=== PATIENT | female | born 1990 | race Caucasian/White ===

== ENCOUNTER 2016-02-21 09:10 | Emergency (ER) | payer MEDICAID, OTHER, SELFPAY ==
[~2016-02-21 09:10] MED LIST: /MOM400 PO; ACET50TA PO; ANUS2.5C2 PR; AVELOX PO; COLACE PO; DOCU10ELUD PO; IBUP80TA PO; MOTRIN PO; PERC5TAB PO; PRENTAB74 PO; VIBRAMYCIN PO
--- NOTE | 2016-02-21 11:30 | EDDOCDS ---
Nurse's Notes [facility] Name: Richelle Sandoval Age: 25 yrs Sex: Female : 1990 Arrival Date: 02/21/2016 Time: 09:10 Bed I4 / M4 Private MD: No Pcp Diagnosis: Acute vaginitis-bacterial vaginosis Presentation: 02/20 09:25 Presenting complaint: Patient states: she has a bacterial vaginal infection but now she kcs has a lot of pain going up into her stomach - started 1 month ago. Adult Sepsis Screening: The patient does not have new or worsening altered mentation. Patient's respiratory rate is less than 22. Systolic blood pressure is greater than 100. Patient has a qSOFA score of 0- Negative Sepsis Screen. Suicide/Homicide risk assessment- the patient denies having any suicidal and/or homicidal ideations and does not present with any other emotional, behavioral or mental health complaints. Status: Patient is not a swimming pool service technician or dependent. Transition of care: patient was not received from another setting of care. 09:25 Acuity: VERO Level 3 kcs 09:25 Method Of Arrival: Walkin/Carried/Asstd kcs Triage Assessment: 09:27 General: Appears comfortable, well developed, well nourished, Behavior is cooperative, kcs pleasant. Pain: Location: abdomen Pain currently is 5 out of 10 on a pain scale. HIV screening NA for this visit Offered previously. Neurological: Level of Consciousness is awake, alert. Respiratory: Airway is patent Respiratory effort is even, unlabored, Respiratory pattern is regular, symmetrical. : Reports discharge. Derm: Skin is intact, is healthy with good turgor, Skin is dry, Skin is normal. 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 Depo-Provera 150 mg/mL IM susp every 3 mo - PMHx: Kidney stones; - PSHx: had mirena removed; - Social history: Smoking status: Patient uses tobacco products, heavy tobacco smoker. No barriers to communication noted, The patient speaks fluent Tamaz[place]. - : The pt / caregiver states he / she is not on anticoagulants. Home medication list is obtained from the patient, [employer] import data. - Exposure Risk Screening:: None identified. Screenin:57 Screening information is obtained from the patient. Primary language is Tamazight. Fall jam1 risk: No risks identified. Assistance ADL's: requires no assistance with activities of daily living. Abuse/DV Screen: The patient / caregiver reports he/she is: not in a situation that causes fear, pain or injury. Nutritional screening: No deficits noted. Exposure Risk Screening: None identified. Advance Directives: Currently, there is no health care proxy. There is no active DNR order. There is no living will. There is no Power of Hand Stamper. Advance directive information has not previously been placed in an [facility] medical record. Further advance directive information is declined. home support is adequate. Vital Signs: 09:12 BP 130 / 70; Pulse 110; Resp 16; Temp 97.2(O); Pulse Ox 99% ; Weight 58.97 kg; Height 5 cmb ft. 6 in. (167.64 cm); Pain 5/10; 11:22 BP 117 / 60; Pulse 85; Resp 18; Temp 98.6; Pulse Ox 98% ; Pain 5/10; jam1 09:12 Body Mass Index 20.98 (58.97 kg, 167.64 cm) cmb Vitals: 09:12 Log In Time: February 21, 2016 at 09:10. cmb ED Course: 09:11 Patient visited by Mimi Glynn. cmb 09:11 Patient moved to Waiting cmb 09:12 No Pcp is Private Physician. cmb 09:13 Patient moved to Pre RCE cmb 09:26 Triage Initiated kcs 09:28 Patient moved to Triage 2 kcs 09:29 Reese Keller PA-C is PHCP. ar2 09:29 Ethel Issa MD is Attending Physician. ar2 09:29 Patient visited by Reese Keller PA-C. ar2 09:49 Patient moved to I3 / M3 bcj 09:50 Patient moved to I4 / M4 srm 10:00 Patient visited by Cherise Terrell RN. mk4 10:03 Pt greeted and oriented to ED. Patient advised of names of staff involved in care, jam1 location of call bradley, wait times and NPO status. Patient has correct armband on for positive identification. Placed in gown. Bed in low position. Call light in reach. Side rails up X 1. Door closed. 10:20 Urine Culture Sent. srm 10:20 UA Sent. srm 10:20 GC & Chlamydia Amplification Sent. srm 10:20 Wet Prep Sent. srm 10:46 Patient visited by Cherise Terrell RN. mk4 11:04 Tommy Chapin CNM is Referral Physician. ar2 11:29 [facility] Payment Agreement was scanned into [employer] and attached to record. Point of Care Testing: Urine : 10:20 hCG Reading: Negative; Control Reading: Positive; srm Ranges: Order Results: Lab Order: UA; SPEC'M 02/21/16 10:11 Test: APPEARANCE, URINE; Value: HAZY; Range: CLEAR; Status: F Test: COLOR, URINE; Value: YELLOW; Range: YELLOW; Status: F Test: PH,URINE; Value: 6.0; Range: 5.0-9.0; Units: UNITS; Status: F Test: SPECIFIC GRAVITY URINE AUTO; Value: 1.024; Range: 1.002-1.035; Status: F Test: PROTEIN, URINE AUTO; Value: NEGATIVE; Range: NEGATIVE; Units: mg/dL; Status: F Test: GLUCOSE, URINE (UA) AUTO; Value: NEGATIVE; Range: NEGATIVE; Units: mg/dL; Status: F Test: KETONE, URINE AUTO; Value: NEGATIVE; Range: NEGATIVE; Units: mg/dL; Status: F Test: UROBILINOGEN, URINE AUTO; Value: 0.2; Range: 0.0-2.0; Units: mg/dL; Status: F Test: BILIRUBIN, URINE AUTO; Value: NEGATIVE; Range: NEGATIVE; Status: F Test: NITRITE, URINE AUTO; Value: NEGATIVE; Range: NEGATIVE; Status: F Test: LEUKOCYTE ESTERASE, URINE AUTO; Value: NEGATIVE; Range: NEGATIVE; Status: F Test: BLOOD, URINE BLOOD; Value: NEGATIVE; Range: NEGATIVE; Status: F Test: WBC, URINE AUTO; Value: 1; Range: 0-3; Units: /HPF; Status: F Test: RBC, URINE AUTO; Value: 1; Range: 0-3; Units: /HPF; Status: F Test: BACTERIA, URINE AUTO; Value: 1+; Range: NEGATIVE; Abnormal: Above high normal; Status: F Test: SQUAMOUS EPITHELIAL CELL UR AU; Value: 5; Range: 0-6; Units: /HPF; Status: F Test: MUCUS, URINE; Value: SMALL; Range: NEGATIVE; Status: F Test: HYALINE CAST, URINE AUTO; Value: 0; Range: 0-1; Units: /LPF; Status: F Lab Order: Wet Prep; SPEC'M 02/21/16 10:11 Test: WET PREP; Value: WET PREP RESULT; Status: F Test: WET PREP; Value: MANY EPITHELIAL CELLS PRESENT; Status: F Test: WET PREP; Value: MANY WBC; Status: F Test: WET PREP; Value: MODERATE RBC; Status: F Test: WET PREP; Value: FEW CLUE CELLS PRESENT; Status: F Test: WET PREP; Value: MODERATE SHORT RODS PRESENT; Status: F Outcome: 11:05 Discharge ordered by Provider. ar2 11:29 Patient left the ED. jam1 Signatures: Awilda Rodriguez RN RN Elie Villagran RN RN Kaitlin Reeves, RN RN srm Tatum Flores, CUSTOMS COMPLIANCE MANAGER CUSTOMS COMPLIANCE MANAGER jam1 Alli Benson, Reg Reg lg Reese Keller PA-C PA-C ar2 Mimi Glynn Margaret RN RN mk4 MTDD
--- NOTE | 2016-02-21 11:30 | EDDOCDS ---
Physician Documentation [facility] Name: Richelle Sandoval Age: 25 yrs Sex: Female : 1990 Arrival Date: 02/21/2016 Time: 09:10 Bed I4 / M4 Private MD: No Pcp Disposition: 02/21/16 11:05 Discharged to Home/Self Care. Impression: Acute vaginitis - bacterial vaginosis. - Condition is Stable. - Discharge Instructions: Bacterial Vaginosis. - Prescriptions for Flagyl 500 mg Oral Tablet - take 1 tablet by ORAL route every 12 hours for 7 days; 14 tablet. Ibuprofen 600 mg Oral Tablet - take 1 tablet by ORAL route every 6 hours As needed take with food; 30 tablet. - Medication Reconciliation, Local Pharmacy Hours form. - Follow up: Tommy Chapin CNM; When: Call to arrange an appointment; Reason: Recheck today's complaints, Continuance of care. Follow up: Emergency Department; When: As needed; Reason: severe pain, fevers, nausea/vomiting. - Problem is new. - Symptoms are unchanged. - Notes: you will contacted with lab results, call tomorrow afternoon if you have not received a call. call your javascript ui developer for a follow up appointment Historical: - Allergies: Amoxicillin (Hives); PENICILLINS (Hives); - Home Meds: 1. Depo-Provera 150 mg/mL IM susp every 3 mo - PMHx: Kidney stones; - PSHx: had mirena removed; - Social history: Smoking status: Patient uses tobacco products, heavy tobacco smoker. No barriers to communication noted, The patient speaks fluent East Timorese. - : The pt / caregiver states he / she is not on anticoagulants. Home medication list is obtained from the patient, [employer] import data. - Exposure Risk Screening:: None identified. 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 6 in. (167.64 cm); Pain 5/10; 11:22 BP 117 / 60; Pulse 85; Resp 18; Temp 98.6; Pulse Ox 98% ; Pain 5/10; jam1 09:12 Body Mass Index 20.98 (58.97 kg, 167.64 cm) cmb MDM: 09:37 UCG by Nursing ordered. ar2 09:37 Set up pelvic ordered. ar2 09:37 Undress patient appropriately for examination ordered. ar2 09:38 UA Ordered. EDMS 09:38 GC & Chlamydia Amplification Ordered. EDMS 09:38 Urine Culture Ordered. EDMS 09:38 Wet Prep Ordered. EDMS 09:47 Financial registration complete. lg 10:48 UA Reviewed. ar2 10:48 Wet Prep Reviewed. ar2 11:29 [facility] Payment Agreement was scanned into [employer] and attached to record. Point of Care Testing: Urine : 10:20 hCG Reading: Negative; Control Reading: Positive; srm Ranges: Signatures: Dispatcher [employer] Awilda Retana, RN RN kcs Tatum Flores, FACILITIES CLERK FACILITIES CLERK jam1 Alli Benson, Reg Reg lg Reese Keller, OSCAR PARichard ar2 The chart was reviewed and I authenticate all verbal orders and agree with the evaluation and treatment provided.Attachments: 11:29 [facility] Payment Agreement lg MTDD
--- NOTE | 2016-02-23 12:30 | EDDOCDS ---
Nurse's Notes [facility] Name: Richelle Sandoval Age: 25 yrs Sex: Female : 1990 Arrival Date: 02/21/2016 Time: 09:10 Bed I4 / M4 Private MD: No Pcp Diagnosis: Acute vaginitis-bacterial vaginosis Presentation: 02/20 09:25 Presenting complaint: Patient states: she has a bacterial vaginal infection but now she kcs has a lot of pain going up into her stomach - started 1 month ago. Adult Sepsis Screening: The patient does not have new or worsening altered mentation. Patient's respiratory rate is less than 22. Systolic blood pressure is greater than 100. Patient has a qSOFA score of 0- Negative Sepsis Screen. Suicide/Homicide risk assessment- the patient denies having any suicidal and/or homicidal ideations and does not present with any other emotional, behavioral or mental health complaints. 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 Transition of care: patient was not received from another setting of care. 09:25 Acuity: VERO Level 3 kcs 09:25 Method Of Arrival: Walkin/Carried/Asstd kcs Triage Assessment: 09:27 General: Appears comfortable, well developed, well nourished, Behavior is cooperative, kcs pleasant. Pain: Location: abdomen Pain currently is 5 out of 10 on a pain scale. HIV screening NA for this visit Offered previously. Neurological: Level of Consciousness is awake, alert. Respiratory: Airway is patent Respiratory effort is even, unlabored, Respiratory pattern is regular, symmetrical. : Reports discharge. Derm: Skin is intact, is healthy with good turgor, Skin is dry, Skin is normal. 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 Depo-Provera 150 mg/mL IM susp every 3 mo - PMHx: Kidney stones; - PSHx: had mirena removed; - Social history: Smoking status: Patient uses tobacco products, heavy tobacco smoker. No barriers to communication noted, The patient speaks fluent Welsh. - Family history: Not pertinent. - : The pt / caregiver states he / she is not on anticoagulants. Home medication list is obtained from the patient, [facility] import data. - Exposure Risk Screening:: None identified. Screenin:57 Screening information is obtained from the patient. Primary language is Welsh. Fall jam1 risk: No risks identified. Assistance ADL's: requires no assistance with activities of daily living. Abuse/DV Screen: The patient / caregiver reports he/she is: not in a situation that causes fear, pain or injury. Nutritional screening: No deficits noted. Exposure Risk Screening: None identified. Advance Directives: Currently, there is no health care proxy. There is no active DNR order. There is no living will. There is no Power of Veterinary Assistant. Advance directive information has not previously been placed in an [facility] medical record. Further advance directive information is declined. home support is adequate. Assessment: 10:00 General: Appears in no apparent distress. Pain: Location: abdomen. GI: Reports mk4 bloating. : Reports a bacterial vag infection. 11:31 General: Appears in no apparent distress, comfortable, pt concerned that she is mk4 "bloated" but denies any further compalints of abd pain. Respiratory: Airway is patent Respiratory effort is even, unlabored, Respiratory pattern is regular. Vital Signs: 09:12 BP 130 / 70; Pulse 110; Resp 16; Temp 97.2(O); Pulse Ox 99% ; Weight 58.97 kg; Height 5 cmb ft. 6 in. (167.64 cm); Pain 5/10; 11:22 BP 117 / 60; Pulse 85; Resp 18; Temp 98.6; Pulse Ox 98% ; Pain 5/10; jam1 09:12 Body Mass Index 20.98 (58.97 kg, 167.64 cm) cmb Vitals: 09:12 Log In Time: February 21, 2016 at 09:10. cmb ED Course: 09:11 Patient visited by Mimi Glynn. cmb 09:11 Patient moved to Waiting cmb 09:12 No Pcp is Private Physician. cmb 09:13 Patient moved to Pre RCE cmb 09:26 Triage Initiated kcs 09:28 Patient moved to Triage 2 kcs 09:29 Reese Keller PA-C is PHCP. ar2 09:29 Ethel Issa MD is Attending Physician. ar2 09:29 Patient visited by Reese Keller PA-C. ar2 09:49 Patient moved to I3 / M3 bcj 09:50 Patient moved to I4 / M4 srm 10:00 Patient visited by Cherise Terrell RN. mk4 10:00 The patient / caregiver is instructed regarding the plan of care and ED course. mk4 10:00 No IV's were initiated during this patient's visit. mk4 10:03 Pt greeted and oriented to ED. Patient advised of names of staff involved in care, jam1 location of call bradley, wait times and NPO status. Patient has correct armband on for positive identification. Placed in gown. Bed in low position. Call light in reach. Side rails up X 1. Door closed. 10:20 Urine Culture Sent. srm 10:20 UA Sent. srm 10:20 GC & Chlamydia Amplification Sent. srm 10:20 Wet Prep Sent. srm 10:46 Patient visited by Cherise Terrell RN. mk4 11:04 Tommy Chapin CNM is Referral Physician. ar2 11:29 [facility] Payment Agreement was scanned into [employer] and attached to record. lg 11:31 Assist provider with pelvic exam: Set up pelvic tray. Specimens sent to lab. Performed mk4 by Reese Keller PA-C. 12:40 T-Sheet-- Draft Copy was scanned into [employer] and attached to record. gb Point of Care Testing: Urine : 10:20 hCG Reading: Negative; Control Reading: Positive; srm Ranges: Order Results: Lab Order: UA; SPEC'M 02/21/16 10:11 Test: APPEARANCE, URINE; Value: HAZY; Range: CLEAR; Status: F Test: COLOR, URINE; Value: YELLOW; Range: YELLOW; Status: F Test: PH,URINE; Value: 6.0; Range: 5.0-9.0; Units: UNITS; Status: F Test: SPECIFIC GRAVITY URINE AUTO; Value: 1.024; Range: 1.002-1.035; Status: F Test: PROTEIN, URINE AUTO; Value: NEGATIVE; Range: NEGATIVE; Units: mg/dL; Status: F Test: GLUCOSE, URINE (UA) AUTO; Value: NEGATIVE; Range: NEGATIVE; Units: mg/dL; Status: F Test: KETONE, URINE AUTO; Value: NEGATIVE; Range: NEGATIVE; Units: mg/dL; Status: F Test: UROBILINOGEN, URINE AUTO; Value: 0.2; Range: 0.0-2.0; Units: mg/dL; Status: F Test: BILIRUBIN, URINE AUTO; Value: NEGATIVE; Range: NEGATIVE; Status: F Test: NITRITE, URINE AUTO; Value: NEGATIVE; Range: NEGATIVE; Status: F Test: LEUKOCYTE ESTERASE, URINE AUTO; Value: NEGATIVE; Range: NEGATIVE; Status: F Test: BLOOD, URINE BLOOD; Value: NEGATIVE; Range: NEGATIVE; Status: F Test: WBC, URINE AUTO; Value: 1; Range: 0-3; Units: /HPF; Status: F Test: RBC, URINE AUTO; Value: 1; Range: 0-3; Units: /HPF; Status: F Test: BACTERIA, URINE AUTO; Value: 1+; Range: NEGATIVE; Abnormal: Above high normal; Status: F Test: SQUAMOUS EPITHELIAL CELL UR AU; Value: 5; Range: 0-6; Units: /HPF; Status: F Test: MUCUS, URINE; Value: SMALL; Range: NEGATIVE; Status: F Test: HYALINE CAST, URINE AUTO; Value: 0; Range: 0-1; Units: /LPF; Status: F Lab Order: Urine Culture; SPEC'M 02/21/16 10:11 Test: URINE CULTURE; Value: ORGANISM 1: ESCHERICHIA COLI; Status: F Test: URINE CULTURE; Value: ESCHERICHIA COLI; Status: F Test: URINE CULTURE; Value: COLONY COUNT CFU/ml >100,000; Status: F Test: URINE CULTURE; Value: GRAM NEG SENSI - VITEK 80; Status: F Test: URINE CULTURE; Value: Method: VIT2; Status: F Test: URINE CULTURE; Value: EXTD BRD SPCTRM BETA LACTAMASE -; Status: F Test: URINE CULTURE; Value: TRIMETHOPRIM/SULFAMETHOXAZOLE <=20 S; Status: F Test: URINE CULTURE; Value: AMPICILLIN 4 S; Status: F Test: URINE CULTURE; Value: GENTAMICIN <=1 S; Status: F Test: URINE CULTURE; Value: NITROFURANTOIN <=16 S; Status: F Test: URINE CULTURE; Value: CEFAZOLIN <=4 S; Status: F Test: URINE CULTURE; Value: LEVOFLOXACIN <=0.12 S; Status: F Test: URINE CULTURE; Value: TOBRAMYCIN <=1 S; Status: F Test: URINE CULTURE; Value: CEFTRIAXONE <=1 S; Status: F Test: URINE CULTURE; Value: CEFTAZIDIME <=1 S; Status: F Test: URINE CULTURE; Value: AMPICILLIN/SULBACTAM <=2 S; Status: F Test: URINE CULTURE; Value: PIPERACILLIN/TAZOBACTAM <=4 S; Status: F Test: URINE CULTURE; Value: AZTREONAM <=1 S; Status: F Test: URINE CULTURE; Value: ERTAPENEM <=0.5 S; Status: F Test: URINE CULTURE; Value: MEROPENEM <=0.25 S; Status: F Test: URINE CULTURE; Value: TIGECYCLINE <=0.5 S; Status: F Test: URINE CULTURE; Value: CEFEPIME <=1 S; Status: F Lab Order: Wet Prep; SPEC'M 02/21/16 10:11 Test: WET PREP; Value: WET PREP RESULT; Status: F Test: WET PREP; Value: MANY EPITHELIAL CELLS PRESENT; Status: F Test: WET PREP; Value: MANY WBC; Status: F Test: WET PREP; Value: MODERATE RBC; Status: F Test: WET PREP; Value: FEW CLUE CELLS PRESENT; Status: F Test: WET PREP; Value: MODERATE SHORT RODS PRESENT; Status: F Lab Order: GC & Chlamydia Amplification; SPEC'M 02/21/16 10:11 Test: CHLAMYDIA DNA AMPLIFICATION; Value: NEGATIVE; Range: NEGATIVE; Status: F Test: GC DNA AMPLIFICATION; Value: NEGATIVE; Range: NEGATIVE; Status: F Outcome: 11:05 Discharge ordered by Provider. ar2 11:29 Patient left the ED. jam1 11:31 Discharge Assessment: Patient awake, alert and oriented x 3. No cognitive and/or mk4 functional deficits noted. Patient verbalized understanding of disposition instructions. Patient awake and alert. Discharge Assessment: patient administered narcotics - no. The following High Risk Discharge criteria are identified: None. Condition: good Condition: stable. No special radiology studies were completed. Property sent home with patient. Signatures: Awilda Rodriguez RN RN kcs Johnson, Bruce, RN RN bcj Michelson, Staci, RN RN srm Murphy, Jane, IVY APPLICATIONS SCIENTIST jam1 Leticia Smith, Reg Reg gb Alli Benson, Reg Reg lg Reese Keller PA-C PA-C ar2 Mimi Glynn cmb Cherise Terrell, RN RN mk4 Chart Complete MTDD
--- NOTE | 2016-02-23 12:30 | EDDOCDS ---
Physician Documentation [facility] Name: Richelle Sandoval Age: 25 yrs Sex: Female : 1990 Arrival Date: 02/21/2016 Time: 09:10 Bed I4 / M4 Private MD: No Pcp Disposition: 02/21/16 11:05 Discharged to Home/Self Care. Impression: Acute vaginitis - bacterial vaginosis. - Condition is Stable. - Discharge Instructions: Bacterial Vaginosis. - Prescriptions for Flagyl 500 mg Oral Tablet - take 1 tablet by ORAL route every 12 hours for 7 days; 14 tablet. Ibuprofen 600 mg Oral Tablet - take 1 tablet by ORAL route every 6 hours As needed take with food; 30 tablet. - Medication Reconciliation, Local Pharmacy Hours form. - Follow up: Tommy Chapin CNM; When: Call to arrange an appointment; Reason: Recheck today's complaints, Continuance of care. Follow up: Emergency Department; When: As needed; Reason: severe pain, fevers, nausea/vomiting. - Problem is new. - Symptoms are unchanged. - Notes: you will contacted with lab results, call tomorrow afternoon if you have not received a call. call your hospital account liaison for a follow up appointment Historical: - Allergies: Amoxicillin (Hives); PENICILLINS (Hives); - Home Meds: 1. Depo-Provera 150 mg/mL IM susp every 3 mo - PMHx: Kidney stones; - PSHx: had mirena removed; - Social history: Smoking status: Patient uses tobacco products, heavy tobacco smoker. No barriers to communication noted, The patient speaks fluent Honduran. - Family history: Not pertinent. - : The pt / caregiver states he / she is not on anticoagulants. Home medication list is obtained from the patient, [employer] import data. - Exposure Risk Screening:: None identified. 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 6 in. (167.64 cm); Pain 5/10; 11:22 BP 117 / 60; Pulse 85; Resp 18; Temp 98.6; Pulse Ox 98% ; Pain 5/10; jam1 09:12 Body Mass Index 20.98 (58.97 kg, 167.64 cm) cmb MDM: 09:37 UCG by Nursing ordered. ar2 09:37 Set up pelvic ordered. ar2 09:37 Undress patient appropriately for examination ordered. ar2 09:38 UA Ordered. EDMS 09:38 GC & Chlamydia Amplification Ordered. EDMS 09:38 Urine Culture Ordered. EDMS 09:38 Wet Prep Ordered. EDMS 09:47 Financial registration complete. lg 10:48 UA Reviewed. ar2 10:48 Wet Prep Reviewed. ar2 11:29 [facility] Payment Agreement was scanned into [employer] and attached to record. lg 12:40 T-Sheet-- Draft Copy was scanned into [employer] and attached to record. gb Point of Care Testing: Urine : 10:20 hCG Reading: Negative; Control Reading: Positive; srm Ranges: Signatures: Dispatcher [employer] Awilda Retana, RN RN kcs Tatum Flores, ENGINEER SYSTEMS ENGINEER SYSTEMS jam1 Leticia Smith, Reg Reg gb Alli Benson, Reg Reg lg Reese Keller, PA-C PA-C ar2 Cherise Terrell RN RN mk4 The chart was reviewed and I authenticate all verbal orders and agree with the evaluation and treatment provided.Attachments: 11:29 [facility] Payment Agreement lg 12:40 T-Sheet-- Draft Copy gb Chart Complete MTDD
--- NOTE | 2016-02-23 12:30 | EDDOCDS ---
Physician Documentation [facility] Name: Richelle Sandoval Age: 25 yrs Sex: Female : 1990 Arrival Date: 02/21/2016 Time: 09:10 Bed I4 / M4 Private MD: No Pcp Disposition: 02/21/16 11:05 Discharged to Home/Self Care. Impression: Acute vaginitis - bacterial vaginosis. - Condition is Stable. - Discharge Instructions: Bacterial Vaginosis. - Prescriptions for Flagyl 500 mg Oral Tablet - take 1 tablet by ORAL route every 12 hours for 7 days; 14 tablet. Ibuprofen 600 mg Oral Tablet - take 1 tablet by ORAL route every 6 hours As needed take with food; 30 tablet. - Medication Reconciliation, Local Pharmacy Hours form. - Follow up: Tommy Chapin CNM; When: Call to arrange an appointment; Reason: Recheck today's complaints, Continuance of care. Follow up: Emergency Department; When: As needed; Reason: severe pain, fevers, nausea/vomiting. - Problem is new. - Symptoms are unchanged. - Notes: you will contacted with lab results, call tomorrow afternoon if you have not received a call. call your maintenance service dispatcher for a follow up appointment Historical: - Allergies: Amoxicillin (Hives); PENICILLINS (Hives); - Home Meds: 1. Depo-Provera 150 mg/mL IM susp every 3 mo - PMHx: Kidney stones; - PSHx: had mirena removed; - Social history: Smoking status: Patient uses tobacco products, heavy tobacco smoker. No barriers to communication noted, The patient speaks fluent Comoran. - Family history: Not pertinent. - : The pt / caregiver states he / she is not on anticoagulants. Home medication list is obtained from the patient, [employer] import data. - Exposure Risk Screening:: None identified. 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 6 in. (167.64 cm); Pain 5/10; 11:22 BP 117 / 60; Pulse 85; Resp 18; Temp 98.6; Pulse Ox 98% ; Pain 5/10; jam1 09:12 Body Mass Index 20.98 (58.97 kg, 167.64 cm) cmb MDM: 09:37 UCG by Nursing ordered. ar2 09:37 Set up pelvic ordered. ar2 09:37 Undress patient appropriately for examination ordered. ar2 09:38 UA Ordered. EDMS 09:38 GC & Chlamydia Amplification Ordered. EDMS 09:38 Urine Culture Ordered. EDMS 09:38 Wet Prep Ordered. EDMS 09:47 Financial registration complete. lg 10:48 UA Reviewed. ar2 10:48 Wet Prep Reviewed. ar2 11:29 [place] Payment Agreement was scanned into [employer] and attached to record. lg 12:40 T-Sheet-- Draft Copy was scanned into [employer] and attached to record. gb Point of Care Testing: Urine : 10:20 hCG Reading: Negative; Control Reading: Positive; srm Ranges: Signatures: Dispatcher [employer] Awilda Retana, RN RN kcs Tatum Flores, PET STORE MERCHANDISER PET STORE MERCHANDISER jam1 Leticia Smith, Reg Reg gb Alli Benson, Reg Reg lg Reese Keller, PA-C PA-C ar2 Cherise Terrell RN RN mk4 The chart was reviewed and I authenticate all verbal orders and agree with the evaluation and treatment provided.Attachments: 11:29 [place] Payment Agreement lg 12:40 T-Sheet-- Draft Copy gb Chart Complete MTDD
--- NOTE | 2016-02-23 14:16 | EDDOCDS ---
Nurse's Notes [facility] Name: Richelle Sandoval Age: 25 yrs Sex: Female : 1990 Arrival Date: 02/21/2016 Time: 09:10 Bed I4 / M4 Private MD: No Pcp Diagnosis: Acute vaginitis-bacterial vaginosis Presentation: 02/20 09:25 Presenting complaint: Patient states: she has a bacterial vaginal infection but now she kcs has a lot of pain going up into her stomach - started 1 month ago. Adult Sepsis Screening: The patient does not have new or worsening altered mentation. Patient's respiratory rate is less than 22. Systolic blood pressure is greater than 100. Patient has a qSOFA score of 0- Negative Sepsis Screen. Suicide/Homicide risk assessment- the patient denies having any suicidal and/or homicidal ideations and does not present with any other emotional, behavioral or mental health complaints. Status: Patient is not a medical services coordinator or dependent. Transition of care: patient was not received from another setting of care. 09:25 Acuity: VERO Level 3 kcs 09:25 Method Of Arrival: Walkin/Carried/Asstd kcs Triage Assessment: 09:27 General: Appears comfortable, well developed, well nourished, Behavior is cooperative, kcs pleasant. Pain: Location: abdomen Pain currently is 5 out of 10 on a pain scale. HIV screening NA for this visit Offered previously. Neurological: Level of Consciousness is awake, alert. Respiratory: Airway is patent Respiratory effort is even, unlabored, Respiratory pattern is regular, symmetrical. : Reports discharge. Derm: Skin is intact, is healthy with good turgor, Skin is dry, Skin is normal. 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 Depo-Provera 150 mg/mL IM susp every 3 mo - PMHx: Kidney stones; - PSHx: had mirena removed; - Social history: Smoking status: Patient uses tobacco products, heavy tobacco smoker. No barriers to communication noted, The patient speaks fluent Frisian. - Family history: Not pertinent. - : The pt / caregiver states he / she is not on anticoagulants. Home medication list is obtained from the patient, [employer] import data. - Exposure Risk Screening:: None identified. Screenin:57 Screening information is obtained from the patient. Primary language is Frisian. Fall jam1 risk: No risks identified. Assistance ADL's: requires no assistance with activities of daily living. Abuse/DV Screen: The patient / caregiver reports he/she is: not in a situation that causes fear, pain or injury. Nutritional screening: No deficits noted. Exposure Risk Screening: None identified. Advance Directives: Currently, there is no health care proxy. There is no active DNR order. There is no living will. There is no Power of Reception Agent. Advance directive information has not previously been placed in an [facility] medical record. Further advance directive information is declined. home support is adequate. Assessment: 10:00 General: Appears in no apparent distress. Pain: Location: abdomen. GI: Reports mk4 bloating. : Reports a bacterial vag infection. 11:31 General: Appears in no apparent distress, comfortable, pt concerned that she is mk4 "bloated" but denies any further compalints of abd pain. Respiratory: Airway is patent Respiratory effort is even, unlabored, Respiratory pattern is regular. Vital Signs: 09:12 BP 130 / 70; Pulse 110; Resp 16; Temp 97.2(O); Pulse Ox 99% ; Weight 58.97 kg; Height 5 cmb ft. 6 in. (167.64 cm); Pain 5/10; 11:22 BP 117 / 60; Pulse 85; Resp 18; Temp 98.6; Pulse Ox 98% ; Pain 5/10; jam1 09:12 Body Mass Index 20.98 (58.97 kg, 167.64 cm) cmb Vitals: 09:12 Log In Time: February 21, 2016 at 09:10. cmb ED Course: 09:11 Patient visited by Mimi Glynn. cmb 09:11 Patient moved to Waiting cmb 09:12 No Pcp is Private Physician. cmb 09:13 Patient moved to Pre RCE cmb 09:26 Triage Initiated kcs 09:28 Patient moved to Triage 2 kcs 09:29 Reese Keller PA-C is PHCP. ar2 09:29 Ethel Issa MD is Attending Physician. ar2 09:29 Patient visited by Reese Keller PA-C. ar2 09:49 Patient moved to I3 / M3 bcj 09:50 Patient moved to I4 / M4 srm 10:00 Patient visited by Cherise Terrell RN. mk4 10:00 The patient / caregiver is instructed regarding the plan of care and ED course. mk4 10:00 No IV's were initiated during this patient's visit. mk4 10:03 Pt greeted and oriented to ED. Patient advised of names of staff involved in care, jam1 location of call bradley, wait times and NPO status. Patient has correct armband on for positive identification. Placed in gown. Bed in low position. Call light in reach. Side rails up X 1. Door closed. 10:20 Urine Culture Sent. srm 10:20 UA Sent. srm 10:20 GC & Chlamydia Amplification Sent. srm 10:20 Wet Prep Sent. srm 10:46 Patient visited by Cherise Terrell RN. mk4 11:04 Tommy Chapin CNM is Referral Physician. ar2 11:29 [place] [place] Payment Agreement was scanned into [employer] and attached to record. lg 11:31 Assist provider with pelvic exam: Set up pelvic tray. Specimens sent to lab. Performed mk4 by Reese Keller PA-C. 12:40 T-Sheet-- Draft Copy was scanned into [employer] and attached to record. gb Point of Care Testing: Urine : 10:20 hCG Reading: Negative; Control Reading: Positive; srm Ranges: Order Results: Lab Order: UA; SPEC'M 02/21/16 10:11 Test: APPEARANCE, URINE; Value: HAZY; Range: CLEAR; Status: F Test: COLOR, URINE; Value: YELLOW; Range: YELLOW; Status: F Test: PH,URINE; Value: 6.0; Range: 5.0-9.0; Units: UNITS; Status: F Test: SPECIFIC GRAVITY URINE AUTO; Value: 1.024; Range: 1.002-1.035; Status: F Test: PROTEIN, URINE AUTO; Value: NEGATIVE; Range: NEGATIVE; Units: mg/dL; Status: F Test: GLUCOSE, URINE (UA) AUTO; Value: NEGATIVE; Range: NEGATIVE; Units: mg/dL; Status: F Test: KETONE, URINE AUTO; Value: NEGATIVE; Range: NEGATIVE; Units: mg/dL; Status: F Test: UROBILINOGEN, URINE AUTO; Value: 0.2; Range: 0.0-2.0; Units: mg/dL; Status: F Test: BILIRUBIN, URINE AUTO; Value: NEGATIVE; Range: NEGATIVE; Status: F Test: NITRITE, URINE AUTO; Value: NEGATIVE; Range: NEGATIVE; Status: F Test: LEUKOCYTE ESTERASE, URINE AUTO; Value: NEGATIVE; Range: NEGATIVE; Status: F Test: BLOOD, URINE BLOOD; Value: NEGATIVE; Range: NEGATIVE; Status: F Test: WBC, URINE AUTO; Value: 1; Range: 0-3; Units: /HPF; Status: F Test: RBC, URINE AUTO; Value: 1; Range: 0-3; Units: /HPF; Status: F Test: BACTERIA, URINE AUTO; Value: 1+; Range: NEGATIVE; Abnormal: Above high normal; Status: F Test: SQUAMOUS EPITHELIAL CELL UR AU; Value: 5; Range: 0-6; Units: /HPF; Status: F Test: MUCUS, URINE; Value: SMALL; Range: NEGATIVE; Status: F Test: HYALINE CAST, URINE AUTO; Value: 0; Range: 0-1; Units: /LPF; Status: F Lab Order: Urine Culture; SPEC'M 02/21/16 10:11 Test: URINE CULTURE; Value: ORGANISM 1: ESCHERICHIA COLI; Status: F Test: URINE CULTURE; Value: ESCHERICHIA COLI; Status: F Test: URINE CULTURE; Value: COLONY COUNT CFU/ml >100,000; Status: F Test: URINE CULTURE; Value: GRAM NEG SENSI - VITEK 80; Status: F Test: URINE CULTURE; Value: Method: VIT2; Status: F Test: URINE CULTURE; Value: EXTD BRD SPCTRM BETA LACTAMASE -; Status: F Test: URINE CULTURE; Value: TRIMETHOPRIM/SULFAMETHOXAZOLE <=20 S; Status: F Test: URINE CULTURE; Value: AMPICILLIN 4 S; Status: F Test: URINE CULTURE; Value: GENTAMICIN <=1 S; Status: F Test: URINE CULTURE; Value: NITROFURANTOIN <=16 S; Status: F Test: URINE CULTURE; Value: CEFAZOLIN <=4 S; Status: F Test: URINE CULTURE; Value: LEVOFLOXACIN <=0.12 S; Status: F Test: URINE CULTURE; Value: TOBRAMYCIN <=1 S; Status: F Test: URINE CULTURE; Value: CEFTRIAXONE <=1 S; Status: F Test: URINE CULTURE; Value: CEFTAZIDIME <=1 S; Status: F Test: URINE CULTURE; Value: AMPICILLIN/SULBACTAM <=2 S; Status: F Test: URINE CULTURE; Value: PIPERACILLIN/TAZOBACTAM <=4 S; Status: F Test: URINE CULTURE; Value: AZTREONAM <=1 S; Status: F Test: URINE CULTURE; Value: ERTAPENEM <=0.5 S; Status: F Test: URINE CULTURE; Value: MEROPENEM <=0.25 S; Status: F Test: URINE CULTURE; Value: TIGECYCLINE <=0.5 S; Status: F Test: URINE CULTURE; Value: CEFEPIME <=1 S; Status: F Lab Order: Wet Prep; SPEC'M 02/21/16 10:11 Test: WET PREP; Value: WET PREP RESULT; Status: F Test: WET PREP; Value: MANY EPITHELIAL CELLS PRESENT; Status: F Test: WET PREP; Value: MANY WBC; Status: F Test: WET PREP; Value: MODERATE RBC; Status: F Test: WET PREP; Value: FEW CLUE CELLS PRESENT; Status: F Test: WET PREP; Value: MODERATE SHORT RODS PRESENT; Status: F Lab Order: GC & Chlamydia Amplification; SPEC'M 02/21/16 10:11 Test: CHLAMYDIA DNA AMPLIFICATION; Value: NEGATIVE; Range: NEGATIVE; Status: F Test: GC DNA AMPLIFICATION; Value: NEGATIVE; Range: NEGATIVE; Status: F Outcome: 11:05 Discharge ordered by Provider. ar2 11:29 Patient left the ED. jam1 11:31 Discharge Assessment: Patient awake, alert and oriented x 3. No cognitive and/or mk4 functional deficits noted. Patient verbalized understanding of disposition instructions. Patient awake and alert. Discharge Assessment: patient administered narcotics - no. The following High Risk Discharge criteria are identified: None. Condition: good Condition: stable. No special radiology studies were completed. Property sent home with patient. Addendum: 02/23/2016 14:13 Narrative: Urine culture results reviewed by MONICA Moreno. Pt contacted and mcp prescription for Macrobid 100mg po BID x 10 days called into [facility]. Signatures: Awilda Rodriguez RN RN Elie Villagran RN RN bcj Michelson, Staci, RN RN Yesenia Sims, RN RN Tatum Godoy, SINGLE POINTED OPERATOR SINGLE POINTED OPERATOR jam1 Leticia Smith, Reg Reg gb Alli Benson, Reg Reg lg Reese Keller, Mimi Chanel PA-C, Margaret, RN RN mk4 MTDD
--- NOTE | 2016-02-23 14:16 | EDDOCDS ---
Physician Documentation [facility] Name: Richelle Sandoval Age: 25 yrs Sex: Female : 1990 Arrival Date: 02/21/2016 Time: 09:10 Bed I4 / M4 Private MD: No Pcp Disposition: 02/21/16 11:05 Discharged to Home/Self Care. Impression: Acute vaginitis - bacterial vaginosis. - Condition is Stable. - Discharge Instructions: Bacterial Vaginosis. - Prescriptions for Flagyl 500 mg Oral Tablet - take 1 tablet by ORAL route every 12 hours for 7 days; 14 tablet. Ibuprofen 600 mg Oral Tablet - take 1 tablet by ORAL route every 6 hours As needed take with food; 30 tablet. - Medication Reconciliation, Local Pharmacy Hours form. - Follow up: Tommy Chapin CNM; When: Call to arrange an appointment; Reason: Recheck today's complaints, Continuance of care. Follow up: Emergency Department; When: As needed; Reason: severe pain, fevers, nausea/vomiting. - Problem is new. - Symptoms are unchanged. - Notes: you will contacted with lab results, call tomorrow afternoon if you have not received a call. call your change management consultant for a follow up appointment Historical: - Allergies: Amoxicillin (Hives); PENICILLINS (Hives); - Home Meds: 1. Depo-Provera 150 mg/mL IM susp every 3 mo - PMHx: Kidney stones; - PSHx: had mirena removed; - Social history: Smoking status: Patient uses tobacco products, heavy tobacco smoker. No barriers to communication noted, The patient speaks fluent Paraguayan. - Family history: Not pertinent. - : The pt / caregiver states he / she is not on anticoagulants. Home medication list is obtained from the patient, [employer] import data. - Exposure Risk Screening:: None identified. 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 6 in. (167.64 cm); Pain 5/10; 11:22 BP 117 / 60; Pulse 85; Resp 18; Temp 98.6; Pulse Ox 98% ; Pain 5/10; jam1 09:12 Body Mass Index 20.98 (58.97 kg, 167.64 cm) cmb MDM: 09:37 UCG by Nursing ordered. ar2 09:37 Set up pelvic ordered. ar2 09:37 Undress patient appropriately for examination ordered. ar2 09:38 UA Ordered. EDMS 09:38 GC & Chlamydia Amplification Ordered. EDMS 09:38 Urine Culture Ordered. EDMS 09:38 Wet Prep Ordered. EDMS 09:47 Financial registration complete. lg 10:48 UA Reviewed. ar2 10:48 Wet Prep Reviewed. ar2 11:29 [facility] Payment Agreement was scanned into [employer] and attached to record. lg 12:40 T-Sheet-- Draft Copy was scanned into [employer] and attached to record. gb Point of Care Testing: Urine : 10:20 hCG Reading: Negative; Control Reading: Positive; srm Ranges: Signatures: Dispatcher [employer] Awilda Retana, RN RN kcs Tatum Flores, WASH OIL PUMP OPERATOR HELPER WASH OIL PUMP OPERATOR HELPER jam1 Leticia Smith, Reg Reg gb Alli Benson, Reg Reg lg Reese Keller, PA-C PA-C ar2 Cherise Terrell RN RN mk4 The chart was reviewed and I authenticate all verbal orders and agree with the evaluation and treatment provided.Attachments: 11:29 [facility] Payment Agreement lg 12:40 T-Sheet-- Draft Copy gb MTDD
--- NOTE | 2016-02-23 14:16 | EDDOCDS ---
Physician Documentation [facility] Name: Richelle Sandoval Age: 25 yrs Sex: Female : 1990 Arrival Date: 02/21/2016 Time: 09:10 Bed I4 / M4 Private MD: No Pcp Disposition: 02/21/16 11:05 Discharged to Home/Self Care. Impression: Acute vaginitis - bacterial vaginosis. - Condition is Stable. - Discharge Instructions: Bacterial Vaginosis. - Prescriptions for Flagyl 500 mg Oral Tablet - take 1 tablet by ORAL route every 12 hours for 7 days; 14 tablet. Ibuprofen 600 mg Oral Tablet - take 1 tablet by ORAL route every 6 hours As needed take with food; 30 tablet. - Medication Reconciliation, Local Pharmacy Hours form. - Follow up: Tommy Chapin CNM; When: Call to arrange an appointment; Reason: Recheck today's complaints, Continuance of care. Follow up: Emergency Department; When: As needed; Reason: severe pain, fevers, nausea/vomiting. - Problem is new. - Symptoms are unchanged. - Notes: you will contacted with lab results, call tomorrow afternoon if you have not received a call. call your program director substance abuse for a follow up appointment Historical: - Allergies: Amoxicillin (Hives); PENICILLINS (Hives); - Home Meds: 1. Depo-Provera 150 mg/mL IM susp every 3 mo - PMHx: Kidney stones; - PSHx: had mirena removed; - Social history: Smoking status: Patient uses tobacco products, heavy tobacco smoker. No barriers to communication noted, The patient speaks fluent Montenegrin. - Family history: Not pertinent. - : The pt / caregiver states he / she is not on anticoagulants. Home medication list is obtained from the patient, [employer] import data. - Exposure Risk Screening:: None identified. TAXATION CONSULTANT: 02/20 09:27 LMP N/A - control method kcs Vital Signs: 09:12 BP 130 / 70; Pulse 110; Resp 16; Temp 97.2(O); Pulse Ox 99% ; Weight 58.97 kg / 130.01 cmb lbs; Height 5 ft. 6 in. (167.64 cm); Pain 5/10; 11:22 BP 117 / 60; Pulse 85; Resp 18; Temp 98.6; Pulse Ox 98% ; Pain 5/10; jam1 09:12 Body Mass Index 20.98 (58.97 kg, 167.64 cm) cmb MDM: 09:37 UCG by Nursing ordered. ar2 09:37 Set up pelvic ordered. ar2 09:37 Undress patient appropriately for examination ordered. ar2 09:38 UA Ordered. EDMS 09:38 GC & Chlamydia Amplification Ordered. EDMS 09:38 Urine Culture Ordered. EDMS 09:38 Wet Prep Ordered. EDMS 09:47 Financial registration complete. lg 10:48 UA Reviewed. ar2 10:48 Wet Prep Reviewed. ar2 11:29 [facility] Payment Agreement was scanned into [employer] and attached to record. lg 12:40 T-Sheet-- Draft Copy was scanned into [employer] and attached to record. gb Point of Care Testing: Urine : 10:20 hCG Reading: Negative; Control Reading: Positive; srm Ranges: Signatures: Dispatcher [employer] Awilda Retana, RN RN kcs Tatum Flores, SQUEEGEE FINISHER SQUEEGEE FINISHER jam1 Leticia Smith, Reg Reg gb Alli Benson, Reg Reg lg Reese Keller, PA-C PA-C ar2 Cherise Terrell RN RN mk4 The chart was reviewed and I authenticate all verbal orders and agree with the evaluation and treatment provided.Attachments: 11:29 [facility] Payment Agreement lg 12:40 T-Sheet-- Draft Copy gb MTDD
--- NOTE | 2016-02-23 14:17 | EDDOCDS ---
Physician Documentation [facility] Name: Richelle Sandoval Age: 25 yrs Sex: Female : 1990 Arrival Date: 02/21/2016 Time: 09:10 Bed I4 / M4 Private MD: No Pcp Disposition: 02/21/16 11:05 Discharged to Home/Self Care. Impression: Acute vaginitis - bacterial vaginosis. - Condition is Stable. - Discharge Instructions: Bacterial Vaginosis. - Prescriptions for Flagyl 500 mg Oral Tablet - take 1 tablet by ORAL route every 12 hours for 7 days; 14 tablet. Ibuprofen 600 mg Oral Tablet - take 1 tablet by ORAL route every 6 hours As needed take with food; 30 tablet. - Medication Reconciliation, Local Pharmacy Hours form. - Follow up: Tommy Chapin CNM; When: Call to arrange an appointment; Reason: Recheck today's complaints, Continuance of care. Follow up: Emergency Department; When: As needed; Reason: severe pain, fevers, nausea/vomiting. - Problem is new. - Symptoms are unchanged. - Notes: you will contacted with lab results, call tomorrow afternoon if you have not received a call. call your small engine trainer for a follow up appointment Historical: - Allergies: Amoxicillin (Hives); PENICILLINS (Hives); - Home Meds: 1. Depo-Provera 150 mg/mL IM susp every 3 mo - PMHx: Kidney stones; - PSHx: had mirena removed; - Social history: Smoking status: Patient uses tobacco products, heavy tobacco smoker. No barriers to communication noted, The patient speaks fluent Salvadorean. - Family history: Not pertinent. - : The pt / caregiver states he / she is not on anticoagulants. Home medication list is obtained from the patient, [employer] import data. - Exposure Risk Screening:: None identified. ADDICTION COUNSELOR: 02/20 09:27 LMP N/A - control method kcs Vital Signs: 09:12 BP 130 / 70; Pulse 110; Resp 16; Temp 97.2(O); Pulse Ox 99% ; Weight 58.97 kg / 130.01 cmb lbs; Height 5 ft. 6 in. (167.64 cm); Pain 5/10; 11:22 BP 117 / 60; Pulse 85; Resp 18; Temp 98.6; Pulse Ox 98% ; Pain 5/10; jam1 09:12 Body Mass Index 20.98 (58.97 kg, 167.64 cm) cmb MDM: 09:37 UCG by Nursing ordered. ar2 09:37 Set up pelvic ordered. ar2 09:37 Undress patient appropriately for examination ordered. ar2 09:38 UA Ordered. EDMS 09:38 GC & Chlamydia Amplification Ordered. EDMS 09:38 Urine Culture Ordered. EDMS 09:38 Wet Prep Ordered. EDMS 09:47 Financial registration complete. lg 10:48 UA Reviewed. ar2 10:48 Wet Prep Reviewed. ar2 11:29 [facility] [place] Agreement was scanned into [employer] and attached to record. lg 12:40 T-Sheet-- Draft Copy was scanned into [employer] and attached to record. gb Point of Care Testing: Urine : 10:20 hCG Reading: Negative; Control Reading: Positive; srm Ranges: Signatures: Dispatcher [employer] Awilda Retana, RN RN kcs Tatum Flores, WATER TREATMENT PLANT OPERATOR WATER TREATMENT PLANT OPERATOR jam1 Leticia Smith, Reg Reg gb Alli Benson, Reg Reg lg Reese Keller, PA-C PA-C ar2 Cherise Terrell RN RN mk4 The chart was reviewed and I authenticate all verbal orders and agree with the evaluation and treatment provided.Attachments: 11:29 [facility] [place] Agreement lg 12:40 T-Sheet-- Draft Copy gb Chart Complete MTDD
--- NOTE | 2016-02-23 14:17 | EDDOCDS ---
Nurse's Notes [facility] Name: Richelle Sandoval Age: 25 yrs Sex: Female : 1990 Arrival Date: 02/21/2016 Time: 09:10 Bed I4 / M4 Private MD: No Pcp Diagnosis: Acute vaginitis-bacterial vaginosis Presentation: 02/20 09:25 Presenting complaint: Patient states: she has a bacterial vaginal infection but now she kcs has a lot of pain going up into her stomach - started 1 month ago. Adult Sepsis Screening: The patient does not have new or worsening altered mentation. Patient's respiratory rate is less than 22. Systolic blood pressure is greater than 100. Patient has a qSOFA score of 0- Negative Sepsis Screen. Suicide/Homicide risk assessment- the patient denies having any suicidal and/or homicidal ideations and does not present with any other emotional, behavioral or mental health complaints. Status: Patient is not a service worker or dependent. Transition of care: patient was not received from another setting of care. 09:25 Acuity: VERO Level 3 kcs 09:25 Method Of Arrival: Walkin/Carried/Asstd kcs Triage Assessment: 09:27 General: Appears comfortable, well developed, well nourished, Behavior is cooperative, kcs pleasant. Pain: Location: abdomen Pain currently is 5 out of 10 on a pain scale. HIV screening NA for this visit Offered previously. Neurological: Level of Consciousness is awake, alert. Respiratory: Airway is patent Respiratory effort is even, unlabored, Respiratory pattern is regular, symmetrical. : Reports discharge. Derm: Skin is intact, is healthy with good turgor, Skin is dry, Skin is normal. 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 Depo-Provera 150 mg/mL IM susp every 3 mo - PMHx: Kidney stones; - PSHx: had mirena removed; - Social history: Smoking status: Patient uses tobacco products, heavy tobacco smoker. No barriers to communication noted, The patient speaks fluent Yakut. - Family history: Not pertinent. - : The pt / caregiver states he / she is not on anticoagulants. Home medication list is obtained from the patient, [employer] import data. - Exposure Risk Screening:: None identified. Screenin:57 Screening information is obtained from the patient. Primary language is Yakut. Fall jam1 risk: No risks identified. Assistance ADL's: requires no assistance with activities of daily living. Abuse/DV Screen: The patient / caregiver reports he/she is: not in a situation that causes fear, pain or injury. Nutritional screening: No deficits noted. Exposure Risk Screening: None identified. Advance Directives: Currently, there is no health care proxy. There is no active DNR order. There is no living will. There is no Power of Silk Presser. Advance directive information has not previously been placed in an [facility] medical record. Further advance directive information is declined. home support is adequate. Assessment: 10:00 General: Appears in no apparent distress. Pain: Location: abdomen. GI: Reports mk4 bloating. : Reports a bacterial vag infection. 11:31 General: Appears in no apparent distress, comfortable, pt concerned that she is mk4 "bloated" but denies any further compalints of abd pain. Respiratory: Airway is patent Respiratory effort is even, unlabored, Respiratory pattern is regular. Vital Signs: 09:12 BP 130 / 70; Pulse 110; Resp 16; Temp 97.2(O); Pulse Ox 99% ; Weight 58.97 kg; Height 5 cmb ft. 6 in. (167.64 cm); Pain 5/10; 11:22 BP 117 / 60; Pulse 85; Resp 18; Temp 98.6; Pulse Ox 98% ; Pain 5/10; jam1 09:12 Body Mass Index 20.98 (58.97 kg, 167.64 cm) cmb Vitals: 09:12 Log In Time: February 21, 2016 at 09:10. cmb ED Course: 09:11 Patient visited by Mimi Glynn. cmb 09:11 Patient moved to Waiting cmb 09:12 No Pcp is Private Physician. cmb 09:13 Patient moved to Pre RCE cmb 09:26 Triage Initiated kcs 09:28 Patient moved to Triage 2 kcs 09:29 Reese Keller PA-C is PHCP. ar2 09:29 Ethel Issa MD is Attending Physician. ar2 09:29 Patient visited by Reese Keller PA-C. ar2 09:49 Patient moved to I3 / M3 bcj 09:50 Patient moved to I4 / M4 srm 10:00 Patient visited by Cherise Terrell RN. mk4 10:00 The patient / caregiver is instructed regarding the plan of care and ED course. mk4 10:00 No IV's were initiated during this patient's visit. mk4 10:03 Pt greeted and oriented to ED. Patient advised of names of staff involved in care, jam1 location of call bradley, wait times and NPO status. Patient has correct armband on for positive identification. Placed in gown. Bed in low position. Call light in reach. Side rails up X 1. Door closed. 10:20 Urine Culture Sent. srm 10:20 UA Sent. srm 10:20 GC & Chlamydia Amplification Sent. srm 10:20 Wet Prep Sent. srm 10:46 Patient visited by Cherise Terrell RN. mk4 11:04 Tommy Chapin CNM is Referral Physician. ar2 11:29 [place] [place] Payment Agreement was scanned into [employer] and attached to record. lg 11:31 Assist provider with pelvic exam: Set up pelvic tray. Specimens sent to lab. Performed mk4 by Reese Keller PA-C. 12:40 T-Sheet-- Draft Copy was scanned into [employer] and attached to record. gb Point of Care Testing: Urine : 10:20 hCG Reading: Negative; Control Reading: Positive; srm Ranges: Order Results: Lab Order: UA; SPEC'M 02/21/16 10:11 Test: APPEARANCE, URINE; Value: HAZY; Range: CLEAR; Status: F Test: COLOR, URINE; Value: YELLOW; Range: YELLOW; Status: F Test: PH,URINE; Value: 6.0; Range: 5.0-9.0; Units: UNITS; Status: F Test: SPECIFIC GRAVITY URINE AUTO; Value: 1.024; Range: 1.002-1.035; Status: F Test: PROTEIN, URINE AUTO; Value: NEGATIVE; Range: NEGATIVE; Units: mg/dL; Status: F Test: GLUCOSE, URINE (UA) AUTO; Value: NEGATIVE; Range: NEGATIVE; Units: mg/dL; Status: F Test: KETONE, URINE AUTO; Value: NEGATIVE; Range: NEGATIVE; Units: mg/dL; Status: F Test: UROBILINOGEN, URINE AUTO; Value: 0.2; Range: 0.0-2.0; Units: mg/dL; Status: F Test: BILIRUBIN, URINE AUTO; Value: NEGATIVE; Range: NEGATIVE; Status: F Test: NITRITE, URINE AUTO; Value: NEGATIVE; Range: NEGATIVE; Status: F Test: LEUKOCYTE ESTERASE, URINE AUTO; Value: NEGATIVE; Range: NEGATIVE; Status: F Test: BLOOD, URINE BLOOD; Value: NEGATIVE; Range: NEGATIVE; Status: F Test: WBC, URINE AUTO; Value: 1; Range: 0-3; Units: /HPF; Status: F Test: RBC, URINE AUTO; Value: 1; Range: 0-3; Units: /HPF; Status: F Test: BACTERIA, URINE AUTO; Value: 1+; Range: NEGATIVE; Abnormal: Above high normal; Status: F Test: SQUAMOUS EPITHELIAL CELL UR AU; Value: 5; Range: 0-6; Units: /HPF; Status: F Test: MUCUS, URINE; Value: SMALL; Range: NEGATIVE; Status: F Test: HYALINE CAST, URINE AUTO; Value: 0; Range: 0-1; Units: /LPF; Status: F Lab Order: Urine Culture; SPEC'M 02/21/16 10:11 Test: URINE CULTURE; Value: ORGANISM 1: ESCHERICHIA COLI; Status: F Test: URINE CULTURE; Value: ESCHERICHIA COLI; Status: F Test: URINE CULTURE; Value: COLONY COUNT CFU/ml >100,000; Status: F Test: URINE CULTURE; Value: GRAM NEG SENSI - VITEK 80; Status: F Test: URINE CULTURE; Value: Method: VIT2; Status: F Test: URINE CULTURE; Value: EXTD BRD SPCTRM BETA LACTAMASE -; Status: F Test: URINE CULTURE; Value: TRIMETHOPRIM/SULFAMETHOXAZOLE <=20 S; Status: F Test: URINE CULTURE; Value: AMPICILLIN 4 S; Status: F Test: URINE CULTURE; Value: GENTAMICIN <=1 S; Status: F Test: URINE CULTURE; Value: NITROFURANTOIN <=16 S; Status: F Test: URINE CULTURE; Value: CEFAZOLIN <=4 S; Status: F Test: URINE CULTURE; Value: LEVOFLOXACIN <=0.12 S; Status: F Test: URINE CULTURE; Value: TOBRAMYCIN <=1 S; Status: F Test: URINE CULTURE; Value: CEFTRIAXONE <=1 S; Status: F Test: URINE CULTURE; Value: CEFTAZIDIME <=1 S; Status: F Test: URINE CULTURE; Value: AMPICILLIN/SULBACTAM <=2 S; Status: F Test: URINE CULTURE; Value: PIPERACILLIN/TAZOBACTAM <=4 S; Status: F Test: URINE CULTURE; Value: AZTREONAM <=1 S; Status: F Test: URINE CULTURE; Value: ERTAPENEM <=0.5 S; Status: F Test: URINE CULTURE; Value: MEROPENEM <=0.25 S; Status: F Test: URINE CULTURE; Value: TIGECYCLINE <=0.5 S; Status: F Test: URINE CULTURE; Value: CEFEPIME <=1 S; Status: F Lab Order: Wet Prep; SPEC'M 02/21/16 10:11 Test: WET PREP; Value: WET PREP RESULT; Status: F Test: WET PREP; Value: MANY EPITHELIAL CELLS PRESENT; Status: F Test: WET PREP; Value: MANY WBC; Status: F Test: WET PREP; Value: MODERATE RBC; Status: F Test: WET PREP; Value: FEW CLUE CELLS PRESENT; Status: F Test: WET PREP; Value: MODERATE SHORT RODS PRESENT; Status: F Lab Order: GC & Chlamydia Amplification; SPEC'M 02/21/16 10:11 Test: CHLAMYDIA DNA AMPLIFICATION; Value: NEGATIVE; Range: NEGATIVE; Status: F Test: GC DNA AMPLIFICATION; Value: NEGATIVE; Range: NEGATIVE; Status: F Outcome: 11:05 Discharge ordered by Provider. ar2 11:29 Patient left the ED. jam1 11:31 Discharge Assessment: Patient awake, alert and oriented x 3. No cognitive and/or mk4 functional deficits noted. Patient verbalized understanding of disposition instructions. Patient awake and alert. Discharge Assessment: patient administered narcotics - no. The following High Risk Discharge criteria are identified: None. Condition: good Condition: stable. No special radiology studies were completed. Property sent home with patient. Addendum: 02/23/2016 14:13 Narrative: Urine culture results reviewed by MONICA Moreno. Pt contacted and mcp prescription for Macrobid 100mg po BID x 10 days called into [facility]. Signatures: Awilda Rodriguez RN RN Elie Villagran RN RN bcj Michelson, Staci, RN RN Yesenia Sims, RN RN Tatum Godoy, HOT DIMPLING MACHINE OPERATOR HOT DIMPLING MACHINE OPERATOR jam1 Leticia Smith, Reg Reg gb Alli Benson, Reg Reg lg Reese Keller, Mimi Chanel PA-C, Margaret, RN RN mk4 Chart Complete MTDD
--- NOTE | 2016-02-23 14:17 | EDDOCDS ---
Physician Documentation [facility] Name: Richelle Sandoval Age: 25 yrs Sex: Female : 1990 Arrival Date: 02/21/2016 Time: 09:10 Bed I4 / M4 Private MD: No Pcp Disposition: 02/21/16 11:05 Discharged to Home/Self Care. Impression: Acute vaginitis - bacterial vaginosis. - Condition is Stable. - Discharge Instructions: Bacterial Vaginosis. - Prescriptions for Flagyl 500 mg Oral Tablet - take 1 tablet by ORAL route every 12 hours for 7 days; 14 tablet. Ibuprofen 600 mg Oral Tablet - take 1 tablet by ORAL route every 6 hours As needed take with food; 30 tablet. - Medication Reconciliation, Local Pharmacy Hours form. - Follow up: Tommy Chapin CNM; When: Call to arrange an appointment; Reason: Recheck today's complaints, Continuance of care. Follow up: Emergency Department; When: As needed; Reason: severe pain, fevers, nausea/vomiting. - Problem is new. - Symptoms are unchanged. - Notes: you will contacted with lab results, call tomorrow afternoon if you have not received a call. call your slasher tender helper for a follow up appointment Historical: - Allergies: Amoxicillin (Hives); PENICILLINS (Hives); - Home Meds: 1. Depo-Provera 150 mg/mL IM susp every 3 mo - PMHx: Kidney stones; - PSHx: had mirena removed; - Social history: Smoking status: Patient uses tobacco products, heavy tobacco smoker. No barriers to communication noted, The patient speaks fluent Cypriot. - Family history: Not pertinent. - : The pt / caregiver states he / she is not on anticoagulants. Home medication list is obtained from the patient, [employer] import data. - Exposure Risk Screening:: None identified. 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 6 in. (167.64 cm); Pain 5/10; 11:22 BP 117 / 60; Pulse 85; Resp 18; Temp 98.6; Pulse Ox 98% ; Pain 5/10; jam1 09:12 Body Mass Index 20.98 (58.97 kg, 167.64 cm) cmb MDM: 09:37 UCG by Nursing ordered. ar2 09:37 Set up pelvic ordered. ar2 09:37 Undress patient appropriately for examination ordered. ar2 09:38 UA Ordered. EDMS 09:38 GC & Chlamydia Amplification Ordered. EDMS 09:38 Urine Culture Ordered. EDMS 09:38 Wet Prep Ordered. EDMS 09:47 Financial registration complete. lg 10:48 UA Reviewed. ar2 10:48 Wet Prep Reviewed. ar2 11:29 [place] [place] Payment Agreement was scanned into [employer] and attached to record. lg 12:40 T-Sheet-- Draft Copy was scanned into [employer] and attached to record. gb Point of Care Testing: Urine : 10:20 hCG Reading: Negative; Control Reading: Positive; srm Ranges: Signatures: Dispatcher [employer] Awilda Retana, RN RN kcs Tatum Flores, AEROPHYSICS ENGINEER AEROPHYSICS ENGINEER jam1 Leticia Smith, Reg Reg gb Alli Benson, Reg Reg lg Reese Keller, PA-C PA-C ar2 Cherise Terrell RN RN mk4 The chart was reviewed and I authenticate all verbal orders and agree with the evaluation and treatment provided.Attachments: 11:29 [facility] [place] Payment Agreement lg 12:40 T-Sheet-- Draft Copy gb Chart Complete MTDD
--- NOTE | 2016-02-23 15:25 | EDDOCDS ---
Physician Documentation [facility] Name: Richelle Sandoval Age: 25 yrs Sex: Female : 1990 Arrival Date: 02/21/2016 Time: 09:10 Bed I4 / M4 Private MD: No Pcp Disposition: 02/21/16 11:05 Discharged to Home/Self Care. Impression: Acute vaginitis - bacterial vaginosis. - Condition is Stable. - Discharge Instructions: Bacterial Vaginosis. - Prescriptions for Flagyl 500 mg Oral Tablet - take 1 tablet by ORAL route every 12 hours for 7 days; 14 tablet. Ibuprofen 600 mg Oral Tablet - take 1 tablet by ORAL route every 6 hours As needed take with food; 30 tablet. - Medication Reconciliation, Local Pharmacy Hours form. - Follow up: Tommy Chapin CNM; When: Call to arrange an appointment; Reason: Recheck today's complaints, Continuance of care. Follow up: Emergency Department; When: As needed; Reason: severe pain, fevers, nausea/vomiting. - Problem is new. - Symptoms are unchanged. - Notes: you will contacted with lab results, call tomorrow afternoon if you have not received a call. call your intelligence agent for a follow up appointment Historical: - Allergies: Amoxicillin (Hives); PENICILLINS (Hives); - Home Meds: 1. Depo-Provera 150 mg/mL IM susp every 3 mo - PMHx: Kidney stones; - PSHx: had mirena removed; - Social history: Smoking status: Patient uses tobacco products, heavy tobacco smoker. No barriers to communication noted, The patient speaks fluent Guatemalan. - Family history: Not pertinent. - : The pt / caregiver states he / she is not on anticoagulants. Home medication list is obtained from the patient, [employer] import data. - Exposure Risk Screening:: None identified. 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 6 in. (167.64 cm); Pain 5/10; 11:22 BP 117 / 60; Pulse 85; Resp 18; Temp 98.6; Pulse Ox 98% ; Pain 5/10; jam1 09:12 Body Mass Index 20.98 (58.97 kg, 167.64 cm) cmb MDM: 09:37 UCG by Nursing ordered. ar2 09:37 Set up pelvic ordered. ar2 09:37 Undress patient appropriately for examination ordered. ar2 09:38 UA Ordered. EDMS 09:38 GC & Chlamydia Amplification Ordered. EDMS 09:38 Urine Culture Ordered. EDMS 09:38 Wet Prep Ordered. EDMS 09:47 Financial registration complete. lg 10:48 UA Reviewed. ar2 10:48 Wet Prep Reviewed. ar2 11:29 [place] [place] Agreement was scanned into [employer] and attached to record. lg 12:40 T-Sheet-- Draft Copy was scanned into [employer] and attached to record. gb Point of Care Testing: Urine : 10:20 hCG Reading: Negative; Control Reading: Positive; srm Ranges: Signatures: Dispatcher [employer] Awilda Retana, RN RN kcs Tatum Flores, OPHTHALMIC LENS INSPECTOR OPHTHALMIC LENS INSPECTOR jam1 Leticia Smith, Reg Reg gb Alli Benson, Reg Reg lg Reese Keller, PA-C PA-C ar2 Cherise Terrell RN RN mk4 The chart was reviewed and I authenticate all verbal orders and agree with the evaluation and treatment provided.Attachments: 11:29 [facility] [place] [place] Agreement lg 12:40 T-Sheet-- Draft Copy gb MTDD
--- NOTE | 2016-02-23 15:25 | EDDOCDS ---
Physician Documentation [facility] Name: Richelle Sandoval Age: 25 yrs Sex: Female : 1990 Arrival Date: 02/21/2016 Time: 09:10 Bed I4 / M4 Private MD: No Pcp Disposition: 02/21/16 11:05 Discharged to Home/Self Care. Impression: Acute vaginitis - bacterial vaginosis. - Condition is Stable. - Discharge Instructions: Bacterial Vaginosis. - Prescriptions for Flagyl 500 mg Oral Tablet - take 1 tablet by ORAL route every 12 hours for 7 days; 14 tablet. Ibuprofen 600 mg Oral Tablet - take 1 tablet by ORAL route every 6 hours As needed take with food; 30 tablet. - Medication Reconciliation, Local Pharmacy Hours form. - Follow up: Tommy Chapin CNM; When: Call to arrange an appointment; Reason: Recheck today's complaints, Continuance of care. Follow up: Emergency Department; When: As needed; Reason: severe pain, fevers, nausea/vomiting. - Problem is new. - Symptoms are unchanged. - Notes: you will contacted with lab results, call tomorrow afternoon if you have not received a call. call your heater operator for a follow up appointment Historical: - Allergies: Amoxicillin (Hives); PENICILLINS (Hives); - Home Meds: 1. Depo-Provera 150 mg/mL IM susp every 3 mo - PMHx: Kidney stones; - PSHx: had mirena removed; - Social history: Smoking status: Patient uses tobacco products, heavy tobacco smoker. No barriers to communication noted, The patient speaks fluent Macedonian. - Family history: Not pertinent. - : The pt / caregiver states he / she is not on anticoagulants. Home medication list is obtained from the patient, [employer] import data. - Exposure Risk Screening:: None identified. 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 6 in. (167.64 cm); Pain 5/10; 11:22 BP 117 / 60; Pulse 85; Resp 18; Temp 98.6; Pulse Ox 98% ; Pain 5/10; jam1 09:12 Body Mass Index 20.98 (58.97 kg, 167.64 cm) cmb MDM: 09:37 UCG by Nursing ordered. ar2 09:37 Set up pelvic ordered. ar2 09:37 Undress patient appropriately for examination ordered. ar2 09:38 UA Ordered. EDMS 09:38 GC & Chlamydia Amplification Ordered. EDMS 09:38 Urine Culture Ordered. EDMS 09:38 Wet Prep Ordered. EDMS 09:47 Financial registration complete. lg 10:48 UA Reviewed. ar2 10:48 Wet Prep Reviewed. ar2 11:29 [place] [place] Payment Agreement was scanned into [employer] and attached to record. lg 12:40 T-Sheet-- Draft Copy was scanned into [employer] and attached to record. gb Point of Care Testing: Urine : 10:20 hCG Reading: Negative; Control Reading: Positive; srm Ranges: Signatures: Dispatcher [employer] Awilda Retana, RN RN kcs Tatum Flores, DIGITAL PROOFING AND PLATEMAKER DIGITAL PROOFING AND PLATEMAKER jam1 Leticia Smith, Reg Reg gb Alli Benson, Reg Reg lg Reese Keller, PA-C PA-C ar2 Cherise Terrell RN RN mk4 The chart was reviewed and I authenticate all verbal orders and agree with the evaluation and treatment provided.Attachments: 11:29 [facility] [place] Payment Agreement lg 12:40 T-Sheet-- Draft Copy gb MTDD
--- NOTE | 2016-02-23 15:25 | EDDOCDS ---
Nurse's Notes [facility] Name: Richelle Sandoval Age: 25 yrs Sex: Female : 1990 Arrival Date: 02/21/2016 Time: 09:10 Bed I4 / M4 Private MD: No Pcp Diagnosis: Acute vaginitis-bacterial vaginosis Presentation: 02/20 09:25 Presenting complaint: Patient states: she has a bacterial vaginal infection but now she kcs has a lot of pain going up into her stomach - started 1 month ago. Adult Sepsis Screening: The patient does not have new or worsening altered mentation. Patient's respiratory rate is less than 22. Systolic blood pressure is greater than 100. Patient has a qSOFA score of 0- Negative Sepsis Screen. Suicide/Homicide risk assessment- the patient denies having any suicidal and/or homicidal ideations and does not present with any other emotional, behavioral or mental health complaints. Status: Patient is not a retail customer service representative or dependent. Transition of care: patient was not received from another setting of care. 09:25 Acuity: VERO Level 3 kcs 09:25 Method Of Arrival: Walkin/Carried/Asstd kcs Triage Assessment: 09:27 General: Appears comfortable, well developed, well nourished, Behavior is cooperative, kcs pleasant. Pain: Location: abdomen Pain currently is 5 out of 10 on a pain scale. HIV screening NA for this visit Offered previously. Neurological: Level of Consciousness is awake, alert. Respiratory: Airway is patent Respiratory effort is even, unlabored, Respiratory pattern is regular, symmetrical. : Reports discharge. Derm: Skin is intact, is healthy with good turgor, Skin is dry, Skin is normal. INGOT STRIPPER: 09:27 LMP N/A - control method kcs Historical: - Allergies: Amoxicillin (Hives); PENICILLINS (Hives); - Home Meds: 1. Depo-Provera 150 mg/mL IM susp every 3 mo - PMHx: Kidney stones; - PSHx: had mirena removed; - Social history: Smoking status: Patient uses tobacco products, heavy tobacco smoker. No barriers to communication noted, The patient speaks fluent French. - Family history: Not pertinent. - : The pt / caregiver states he / she is not on anticoagulants. Home medication list is obtained from the patient, [employer] import data. - Exposure Risk Screening:: None identified. Screenin:57 Screening information is obtained from the patient. Primary language is French. Fall jam1 risk: No risks identified. Assistance ADL's: requires no assistance with activities of daily living. Abuse/DV Screen: The patient / caregiver reports he/she is: not in a situation that causes fear, pain or injury. Nutritional screening: No deficits noted. Exposure Risk Screening: None identified. Advance Directives: Currently, there is no health care proxy. There is no active DNR order. There is no living will. There is no Power of Jewel Cupping Machine Operator. Advance directive information has not previously been placed in an [facility] medical record. Further advance directive information is declined. home support is adequate. Assessment: 10:00 General: Appears in no apparent distress. Pain: Location: abdomen. GI: Reports mk4 bloating. : Reports a bacterial vag infection. 11:31 General: Appears in no apparent distress, comfortable, pt concerned that she is mk4 "bloated" but denies any further compalints of abd pain. Respiratory: Airway is patent Respiratory effort is even, unlabored, Respiratory pattern is regular. Vital Signs: 09:12 BP 130 / 70; Pulse 110; Resp 16; Temp 97.2(O); Pulse Ox 99% ; Weight 58.97 kg; Height 5 cmb ft. 6 in. (167.64 cm); Pain 5/10; 11:22 BP 117 / 60; Pulse 85; Resp 18; Temp 98.6; Pulse Ox 98% ; Pain 5/10; jam1 09:12 Body Mass Index 20.98 (58.97 kg, 167.64 cm) cmb Vitals: 09:12 Log In Time: February 21, 2016 at 09:10. cmb ED Course: 09:11 Patient visited by Mimi Glynn. cmb 09:11 Patient moved to Waiting cmb 09:12 No Pcp is Private Physician. cmb 09:13 Patient moved to Pre RCE cmb 09:26 Triage Initiated kcs 09:28 Patient moved to Triage 2 kcs 09:29 Reese Keller PA-C is PHCP. ar2 09:29 Ethel Issa MD is Attending Physician. ar2 09:29 Patient visited by Reese Keller PA-C. ar2 09:49 Patient moved to I3 / M3 bcj 09:50 Patient moved to I4 / M4 srm 10:00 Patient visited by Cherise Terrell RN. mk4 10:00 The patient / caregiver is instructed regarding the plan of care and ED course. mk4 10:00 No IV's were initiated during this patient's visit. mk4 10:03 Pt greeted and oriented to ED. Patient advised of names of staff involved in care, jam1 location of call bradley, wait times and NPO status. Patient has correct armband on for positive identification. Placed in gown. Bed in low position. Call light in reach. Side rails up X 1. Door closed. 10:20 Urine Culture Sent. srm 10:20 UA Sent. srm 10:20 GC & Chlamydia Amplification Sent. srm 10:20 Wet Prep Sent. srm 10:46 Patient visited by Cherise Terrell RN. mk4 11:04 Tommy Chapin CNM is Referral Physician. ar2 11:29 [facility] [place] Payment Agreement was scanned into [employer] and attached to record. lg 11:31 Assist provider with pelvic exam: Set up pelvic tray. Specimens sent to lab. Performed mk4 by Reese Keller PA-C. 12:40 T-Sheet-- Draft Copy was scanned into [employer] and attached to record. gb Point of Care Testing: Urine : 10:20 hCG Reading: Negative; Control Reading: Positive; srm Ranges: Order Results: Lab Order: UA; SPEC'M 02/21/16 10:11 Test: APPEARANCE, URINE; Value: HAZY; Range: CLEAR; Status: F Test: COLOR, URINE; Value: YELLOW; Range: YELLOW; Status: F Test: PH,URINE; Value: 6.0; Range: 5.0-9.0; Units: UNITS; Status: F Test: SPECIFIC GRAVITY URINE AUTO; Value: 1.024; Range: 1.002-1.035; Status: F Test: PROTEIN, URINE AUTO; Value: NEGATIVE; Range: NEGATIVE; Units: mg/dL; Status: F Test: GLUCOSE, URINE (UA) AUTO; Value: NEGATIVE; Range: NEGATIVE; Units: mg/dL; Status: F Test: KETONE, URINE AUTO; Value: NEGATIVE; Range: NEGATIVE; Units: mg/dL; Status: F Test: UROBILINOGEN, URINE AUTO; Value: 0.2; Range: 0.0-2.0; Units: mg/dL; Status: F Test: BILIRUBIN, URINE AUTO; Value: NEGATIVE; Range: NEGATIVE; Status: F Test: NITRITE, URINE AUTO; Value: NEGATIVE; Range: NEGATIVE; Status: F Test: LEUKOCYTE ESTERASE, URINE AUTO; Value: NEGATIVE; Range: NEGATIVE; Status: F Test: BLOOD, URINE BLOOD; Value: NEGATIVE; Range: NEGATIVE; Status: F Test: WBC, URINE AUTO; Value: 1; Range: 0-3; Units: /HPF; Status: F Test: RBC, URINE AUTO; Value: 1; Range: 0-3; Units: /HPF; Status: F Test: BACTERIA, URINE AUTO; Value: 1+; Range: NEGATIVE; Abnormal: Above high normal; Status: F Test: SQUAMOUS EPITHELIAL CELL UR AU; Value: 5; Range: 0-6; Units: /HPF; Status: F Test: MUCUS, URINE; Value: SMALL; Range: NEGATIVE; Status: F Test: HYALINE CAST, URINE AUTO; Value: 0; Range: 0-1; Units: /LPF; Status: F Lab Order: Urine Culture; SPEC'M 02/21/16 10:11 Test: URINE CULTURE; Value: ORGANISM 1: ESCHERICHIA COLI; Status: F Test: URINE CULTURE; Value: ESCHERICHIA COLI; Status: F Test: URINE CULTURE; Value: COLONY COUNT CFU/ml >100,000; Status: F Test: URINE CULTURE; Value: GRAM NEG SENSI - VITEK 80; Status: F Test: URINE CULTURE; Value: Method: VIT2; Status: F Test: URINE CULTURE; Value: EXTD BRD SPCTRM BETA LACTAMASE -; Status: F Test: URINE CULTURE; Value: TRIMETHOPRIM/SULFAMETHOXAZOLE <=20 S; Status: F Test: URINE CULTURE; Value: AMPICILLIN 4 S; Status: F Test: URINE CULTURE; Value: GENTAMICIN <=1 S; Status: F Test: URINE CULTURE; Value: NITROFURANTOIN <=16 S; Status: F Test: URINE CULTURE; Value: CEFAZOLIN <=4 S; Status: F Test: URINE CULTURE; Value: LEVOFLOXACIN <=0.12 S; Status: F Test: URINE CULTURE; Value: TOBRAMYCIN <=1 S; Status: F Test: URINE CULTURE; Value: CEFTRIAXONE <=1 S; Status: F Test: URINE CULTURE; Value: CEFTAZIDIME <=1 S; Status: F Test: URINE CULTURE; Value: AMPICILLIN/SULBACTAM <=2 S; Status: F Test: URINE CULTURE; Value: PIPERACILLIN/TAZOBACTAM <=4 S; Status: F Test: URINE CULTURE; Value: AZTREONAM <=1 S; Status: F Test: URINE CULTURE; Value: ERTAPENEM <=0.5 S; Status: F Test: URINE CULTURE; Value: MEROPENEM <=0.25 S; Status: F Test: URINE CULTURE; Value: TIGECYCLINE <=0.5 S; Status: F Test: URINE CULTURE; Value: CEFEPIME <=1 S; Status: F Lab Order: Wet Prep; SPEC'M 02/21/16 10:11 Test: WET PREP; Value: WET PREP RESULT; Status: F Test: WET PREP; Value: MANY EPITHELIAL CELLS PRESENT; Status: F Test: WET PREP; Value: MANY WBC; Status: F Test: WET PREP; Value: MODERATE RBC; Status: F Test: WET PREP; Value: FEW CLUE CELLS PRESENT; Status: F Test: WET PREP; Value: MODERATE SHORT RODS PRESENT; Status: F Lab Order: GC & Chlamydia Amplification; SPEC'M 02/21/16 10:11 Test: CHLAMYDIA DNA AMPLIFICATION; Value: NEGATIVE; Range: NEGATIVE; Status: F Test: GC DNA AMPLIFICATION; Value: NEGATIVE; Range: NEGATIVE; Status: F Outcome: 11:05 Discharge ordered by Provider. ar2 11:29 Patient left the ED. jam1 11:31 Discharge Assessment: Patient awake, alert and oriented x 3. No cognitive and/or mk4 functional deficits noted. Patient verbalized understanding of disposition instructions. Patient awake and alert. Discharge Assessment: patient administered narcotics - no. The following High Risk Discharge criteria are identified: None. Condition: good Condition: stable. No special radiology studies were completed. Property sent home with patient. Addendum: 02/23/2016 14:13 Narrative: Urine culture results reviewed by MONICA Moreno. Pt contacted and [facility] prescription for Macrobid 100mg po BID x 10 days called into [facility]. 15:23 Narrative: Wet prep results reviewed by MONICA Moreno and no changes made. [facility] Signatures: Awilda Rodrigeuz, RN RN Elie Villagran, RN RN Kaitlin Reeves, RN RN Yesenia Sims, RN RN Tatum Godoy, IVY DIRECTOR MEDIA jam1 Leticia Smith, Reg Reg gb Alli Benson, Reg Reg lg Reese Keller, PA-C PA-C Mimi Dash Margaret RN RN mk4 MTDD
--- NOTE | 2016-02-23 15:27 | EDDOCDS ---
Nurse's Notes [facility] Name: Richelle Sandoval Age: 25 yrs Sex: Female : 1990 Arrival Date: 02/21/2016 Time: 09:10 Bed I4 / M4 Private MD: No Pcp Diagnosis: Acute vaginitis-bacterial vaginosis Presentation: 02/20 09:25 Presenting complaint: Patient states: she has a bacterial vaginal infection but now she kcs has a lot of pain going up into her stomach - started 1 month ago. Adult Sepsis Screening: The patient does not have new or worsening altered mentation. Patient's respiratory rate is less than 22. Systolic blood pressure is greater than 100. Patient has a qSOFA score of 0- Negative Sepsis Screen. Suicide/Homicide risk assessment- the patient denies having any suicidal and/or homicidal ideations and does not present with any other emotional, behavioral or mental health complaints. Status: Patient is not a special services director or dependent. Transition of care: patient was not received from another setting of care. 09:25 Acuity: VERO Level 3 kcs 09:25 Method Of Arrival: Walkin/Carried/Asstd kcs Triage Assessment: 09:27 General: Appears comfortable, well developed, well nourished, Behavior is cooperative, kcs pleasant. Pain: Location: abdomen Pain currently is 5 out of 10 on a pain scale. HIV screening NA for this visit Offered previously. Neurological: Level of Consciousness is awake, alert. Respiratory: Airway is patent Respiratory effort is even, unlabored, Respiratory pattern is regular, symmetrical. : Reports discharge. Derm: Skin is intact, is healthy with good turgor, Skin is dry, Skin is normal. 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 Depo-Provera 150 mg/mL IM susp every 3 mo - PMHx: Kidney stones; - PSHx: had mirena removed; - Social history: Smoking status: Patient uses tobacco products, heavy tobacco smoker. No barriers to communication noted, The patient speaks fluent Nepali. - Family history: Not pertinent. - : The pt / caregiver states he / she is not on anticoagulants. Home medication list is obtained from the patient, [employer] import data. - Exposure Risk Screening:: None identified. Screenin:57 Screening information is obtained from the patient. Primary language is Nepali. Fall jam1 risk: No risks identified. Assistance ADL's: requires no assistance with activities of daily living. Abuse/DV Screen: The patient / caregiver reports he/she is: not in a situation that causes fear, pain or injury. Nutritional screening: No deficits noted. Exposure Risk Screening: None identified. Advance Directives: Currently, there is no health care proxy. There is no active DNR order. There is no living will. There is no Power of Carton Folder. Advance directive information has not previously been placed in an [facility] medical record. Further advance directive information is declined. home support is adequate. Assessment: 10:00 General: Appears in no apparent distress. Pain: Location: abdomen. GI: Reports mk4 bloating. : Reports a bacterial vag infection. 11:31 General: Appears in no apparent distress, comfortable, pt concerned that she is mk4 "bloated" but denies any further compalints of abd pain. Respiratory: Airway is patent Respiratory effort is even, unlabored, Respiratory pattern is regular. Vital Signs: 09:12 BP 130 / 70; Pulse 110; Resp 16; Temp 97.2(O); Pulse Ox 99% ; Weight 58.97 kg; Height 5 cmb ft. 6 in. (167.64 cm); Pain 5/10; 11:22 BP 117 / 60; Pulse 85; Resp 18; Temp 98.6; Pulse Ox 98% ; Pain 5/10; jam1 09:12 Body Mass Index 20.98 (58.97 kg, 167.64 cm) cmb Vitals: 09:12 Log In Time: February 21, 2016 at 09:10. cmb ED Course: 09:11 Patient visited by Mimi Glynn. cmb 09:11 Patient moved to Waiting cmb 09:12 No Pcp is Private Physician. cmb 09:13 Patient moved to Pre RCE cmb 09:26 Triage Initiated kcs 09:28 Patient moved to Triage 2 kcs 09:29 Reese Keller PA-C is PHCP. ar2 09:29 Ethel Issa MD is Attending Physician. ar2 09:29 Patient visited by Reese Keller PA-C. ar2 09:49 Patient moved to I3 / M3 bcj 09:50 Patient moved to I4 / M4 srm 10:00 Patient visited by Cherise Terrell RN. mk4 10:00 The patient / caregiver is instructed regarding the plan of care and ED course. mk4 10:00 No IV's were initiated during this patient's visit. mk4 10:03 Pt greeted and oriented to ED. Patient advised of names of staff involved in care, jam1 location of call bradley, wait times and NPO status. Patient has correct armband on for positive identification. Placed in gown. Bed in low position. Call light in reach. Side rails up X 1. Door closed. 10:20 Urine Culture Sent. srm 10:20 UA Sent. srm 10:20 GC & Chlamydia Amplification Sent. srm 10:20 Wet Prep Sent. srm 10:46 Patient visited by Cherise Terrell RN. mk4 11:04 Tommy Chapin CNM is Referral Physician. ar2 11:29 [facility] [place] Agreement was scanned into [employer] and attached to record. lg 11:31 Assist provider with pelvic exam: Set up pelvic tray. Specimens sent to lab. Performed mk4 by Reese Keller PA-C. 12:40 T-Sheet-- Draft Copy was scanned into [employer] and attached to record. gb Point of Care Testing: Urine : 10:20 hCG Reading: Negative; Control Reading: Positive; srm Ranges: Order Results: Lab Order: UA; SPEC'M 02/21/16 10:11 Test: APPEARANCE, URINE; Value: HAZY; Range: CLEAR; Status: F Test: COLOR, URINE; Value: YELLOW; Range: YELLOW; Status: F Test: PH,URINE; Value: 6.0; Range: 5.0-9.0; Units: UNITS; Status: F Test: SPECIFIC GRAVITY URINE AUTO; Value: 1.024; Range: 1.002-1.035; Status: F Test: PROTEIN, URINE AUTO; Value: NEGATIVE; Range: NEGATIVE; Units: mg/dL; Status: F Test: GLUCOSE, URINE (UA) AUTO; Value: NEGATIVE; Range: NEGATIVE; Units: mg/dL; Status: F Test: KETONE, URINE AUTO; Value: NEGATIVE; Range: NEGATIVE; Units: mg/dL; Status: F Test: UROBILINOGEN, URINE AUTO; Value: 0.2; Range: 0.0-2.0; Units: mg/dL; Status: F Test: BILIRUBIN, URINE AUTO; Value: NEGATIVE; Range: NEGATIVE; Status: F Test: NITRITE, URINE AUTO; Value: NEGATIVE; Range: NEGATIVE; Status: F Test: LEUKOCYTE ESTERASE, URINE AUTO; Value: NEGATIVE; Range: NEGATIVE; Status: F Test: BLOOD, URINE BLOOD; Value: NEGATIVE; Range: NEGATIVE; Status: F Test: WBC, URINE AUTO; Value: 1; Range: 0-3; Units: /HPF; Status: F Test: RBC, URINE AUTO; Value: 1; Range: 0-3; Units: /HPF; Status: F Test: BACTERIA, URINE AUTO; Value: 1+; Range: NEGATIVE; Abnormal: Above high normal; Status: F Test: SQUAMOUS EPITHELIAL CELL UR AU; Value: 5; Range: 0-6; Units: /HPF; Status: F Test: MUCUS, URINE; Value: SMALL; Range: NEGATIVE; Status: F Test: HYALINE CAST, URINE AUTO; Value: 0; Range: 0-1; Units: /LPF; Status: F Lab Order: Urine Culture; SPEC'M 02/21/16 10:11 Test: URINE CULTURE; Value: ORGANISM 1: ESCHERICHIA COLI; Status: F Test: URINE CULTURE; Value: ESCHERICHIA COLI; Status: F Test: URINE CULTURE; Value: COLONY COUNT CFU/ml >100,000; Status: F Test: URINE CULTURE; Value: GRAM NEG SENSI - VITEK 80; Status: F Test: URINE CULTURE; Value: Method: VIT2; Status: F Test: URINE CULTURE; Value: EXTD BRD SPCTRM BETA LACTAMASE -; Status: F Test: URINE CULTURE; Value: TRIMETHOPRIM/SULFAMETHOXAZOLE <=20 S; Status: F Test: URINE CULTURE; Value: AMPICILLIN 4 S; Status: F Test: URINE CULTURE; Value: GENTAMICIN <=1 S; Status: F Test: URINE CULTURE; Value: NITROFURANTOIN <=16 S; Status: F Test: URINE CULTURE; Value: CEFAZOLIN <=4 S; Status: F Test: URINE CULTURE; Value: LEVOFLOXACIN <=0.12 S; Status: F Test: URINE CULTURE; Value: TOBRAMYCIN <=1 S; Status: F Test: URINE CULTURE; Value: CEFTRIAXONE <=1 S; Status: F Test: URINE CULTURE; Value: CEFTAZIDIME <=1 S; Status: F Test: URINE CULTURE; Value: AMPICILLIN/SULBACTAM <=2 S; Status: F Test: URINE CULTURE; Value: PIPERACILLIN/TAZOBACTAM <=4 S; Status: F Test: URINE CULTURE; Value: AZTREONAM <=1 S; Status: F Test: URINE CULTURE; Value: ERTAPENEM <=0.5 S; Status: F Test: URINE CULTURE; Value: MEROPENEM <=0.25 S; Status: F Test: URINE CULTURE; Value: TIGECYCLINE <=0.5 S; Status: F Test: URINE CULTURE; Value: CEFEPIME <=1 S; Status: F Lab Order: Wet Prep; SPEC'M 02/21/16 10:11 Test: WET PREP; Value: WET PREP RESULT; Status: F Test: WET PREP; Value: MANY EPITHELIAL CELLS PRESENT; Status: F Test: WET PREP; Value: MANY WBC; Status: F Test: WET PREP; Value: MODERATE RBC; Status: F Test: WET PREP; Value: FEW CLUE CELLS PRESENT; Status: F Test: WET PREP; Value: MODERATE SHORT RODS PRESENT; Status: F Lab Order: GC & Chlamydia Amplification; SPEC'M 02/21/16 10:11 Test: CHLAMYDIA DNA AMPLIFICATION; Value: NEGATIVE; Range: NEGATIVE; Status: F Test: GC DNA AMPLIFICATION; Value: NEGATIVE; Range: NEGATIVE; Status: F Outcome: 11:05 Discharge ordered by Provider. ar2 11:29 Patient left the ED. jam1 11:31 Discharge Assessment: Patient awake, alert and oriented x 3. No cognitive and/or mk4 functional deficits noted. Patient verbalized understanding of disposition instructions. Patient awake and alert. Discharge Assessment: patient administered narcotics - no. The following High Risk Discharge criteria are identified: None. Condition: good Condition: stable. No special radiology studies were completed. Property sent home with patient. Addendum: 02/23/2016 14:13 Narrative: Urine culture results reviewed by MONICA Moreno. Pt contacted and [facility] prescription for Macrobid 100mg po BID x 10 days called into [facility]. 15:23 Narrative: Wet prep results reviewed by MONICA Moreno and no changes made. [facility] Signatures: Awilda Rodriguez, RN RN Elie Villagran, RN RN Kaitlin Reeves, RN RN Yesenia Sims, RN RN Tatum Godoy, IVY LAYOUT MECHANIC jam1 Leticia Smith, Reg Reg gb Alli Benson, Reg Reg lg Reese Keller, PA-C PA-C Mimi Dash Margaret RN RN mk4 Chart Complete MTDD
--- NOTE | 2016-02-23 15:27 | EDDOCDS ---
Physician Documentation [facility] Name: Richelle Sandoval Age: 25 yrs Sex: Female : 1990 Arrival Date: 02/21/2016 Time: 09:10 Bed I4 / M4 Private MD: No Pcp Disposition: 02/21/16 11:05 Discharged to Home/Self Care. Impression: Acute vaginitis - bacterial vaginosis. - Condition is Stable. - Discharge Instructions: Bacterial Vaginosis. - Prescriptions for Flagyl 500 mg Oral Tablet - take 1 tablet by ORAL route every 12 hours for 7 days; 14 tablet. Ibuprofen 600 mg Oral Tablet - take 1 tablet by ORAL route every 6 hours As needed take with food; 30 tablet. - Medication Reconciliation, Local Pharmacy Hours form. - Follow up: Tommy Chapin CNM; When: Call to arrange an appointment; Reason: Recheck today's complaints, Continuance of care. Follow up: Emergency Department; When: As needed; Reason: severe pain, fevers, nausea/vomiting. - Problem is new. - Symptoms are unchanged. - Notes: you will contacted with lab results, call tomorrow afternoon if you have not received a call. call your senior copywriter for a follow up appointment Historical: - Allergies: Amoxicillin (Hives); PENICILLINS (Hives); - Home Meds: 1. Depo-Provera 150 mg/mL IM susp every 3 mo - PMHx: Kidney stones; - PSHx: had mirena removed; - Social history: Smoking status: Patient uses tobacco products, heavy tobacco smoker. No barriers to communication noted, The patient speaks fluent Ukrainian. - Family history: Not pertinent. - : The pt / caregiver states he / she is not on anticoagulants. Home medication list is obtained from the patient, [employer] import data. - Exposure Risk Screening:: None identified. 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 6 in. (167.64 cm); Pain 5/10; 11:22 BP 117 / 60; Pulse 85; Resp 18; Temp 98.6; Pulse Ox 98% ; Pain 5/10; jam1 09:12 Body Mass Index 20.98 (58.97 kg, 167.64 cm) cmb MDM: 09:37 UCG by Nursing ordered. ar2 09:37 Set up pelvic ordered. ar2 09:37 Undress patient appropriately for examination ordered. ar2 09:38 UA Ordered. EDMS 09:38 GC & Chlamydia Amplification Ordered. EDMS 09:38 Urine Culture Ordered. EDMS 09:38 Wet Prep Ordered. EDMS 09:47 Financial registration complete. lg 10:48 UA Reviewed. ar2 10:48 Wet Prep Reviewed. ar2 11:29 [facility] Payment Agreement was scanned into [employer] and attached to record. lg 12:40 T-Sheet-- Draft Copy was scanned into [employer] and attached to record. gb Point of Care Testing: Urine : 10:20 hCG Reading: Negative; Control Reading: Positive; srm Ranges: Signatures: Dispatcher [employer] Awilda Retana, RN RN kcs Tatum Flores, CHIEF RELAY TESTER CHIEF RELAY TESTER jam1 Leticia Smith, Reg Reg gb Alli Benson, Reg Reg lg Reese Keller, PA-C PA-C ar2 Cherise Terrell RN RN mk4 The chart was reviewed and I authenticate all verbal orders and agree with the evaluation and treatment provided.Attachments: 11:29 [facility] Payment Agreement lg 12:40 T-Sheet-- Draft Copy gb Chart Complete MTDD
--- NOTE | 2016-02-23 15:27 | EDDOCDS ---
Physician Documentation [facility] Name: Richelle Sandoval Age: 25 yrs Sex: Female : 1990 Arrival Date: 02/21/2016 Time: 09:10 Bed I4 / M4 Private MD: No Pcp Disposition: 02/21/16 11:05 Discharged to Home/Self Care. Impression: Acute vaginitis - bacterial vaginosis. - Condition is Stable. - Discharge Instructions: Bacterial Vaginosis. - Prescriptions for Flagyl 500 mg Oral Tablet - take 1 tablet by ORAL route every 12 hours for 7 days; 14 tablet. Ibuprofen 600 mg Oral Tablet - take 1 tablet by ORAL route every 6 hours As needed take with food; 30 tablet. - Medication Reconciliation, Local Pharmacy Hours form. - Follow up: Tommy Chapin CNM; When: Call to arrange an appointment; Reason: Recheck today's complaints, Continuance of care. Follow up: Emergency Department; When: As needed; Reason: severe pain, fevers, nausea/vomiting. - Problem is new. - Symptoms are unchanged. - Notes: you will contacted with lab results, call tomorrow afternoon if you have not received a call. call your pipe organ technician for a follow up appointment Historical: - Allergies: Amoxicillin (Hives); PENICILLINS (Hives); - Home Meds: 1. Depo-Provera 150 mg/mL IM susp every 3 mo - PMHx: Kidney stones; - PSHx: had mirena removed; - Social history: Smoking status: Patient uses tobacco products, heavy tobacco smoker. No barriers to communication noted, The patient speaks fluent Guinean. - Family history: Not pertinent. - : The pt / caregiver states he / she is not on anticoagulants. Home medication list is obtained from the patient, [employer] import data. - Exposure Risk Screening:: None identified. COUNTY HISTORIAN: 02/20 09:27 LMP N/A - control method kcs Vital Signs: 09:12 BP 130 / 70; Pulse 110; Resp 16; Temp 97.2(O); Pulse Ox 99% ; Weight 58.97 kg / 130.01 cmb lbs; Height 5 ft. 6 in. (167.64 cm); Pain 5/10; 11:22 BP 117 / 60; Pulse 85; Resp 18; Temp 98.6; Pulse Ox 98% ; Pain 5/10; jam1 09:12 Body Mass Index 20.98 (58.97 kg, 167.64 cm) cmb MDM: 09:37 UCG by Nursing ordered. ar2 09:37 Set up pelvic ordered. ar2 09:37 Undress patient appropriately for examination ordered. ar2 09:38 UA Ordered. EDMS 09:38 GC & Chlamydia Amplification Ordered. EDMS 09:38 Urine Culture Ordered. EDMS 09:38 Wet Prep Ordered. EDMS 09:47 Financial registration complete. lg 10:48 UA Reviewed. ar2 10:48 Wet Prep Reviewed. ar2 11:29 [facility] [place] Payment Agreement was scanned into [employer] and attached to record. lg 12:40 T-Sheet-- Draft Copy was scanned into [employer] and attached to record. gb Point of Care Testing: Urine : 10:20 hCG Reading: Negative; Control Reading: Positive; srm Ranges: Signatures: Dispatcher [employer] Awilda Retana, RN RN kcs Tatum Flores, BULK MATERIALS HANDLING PLANT OPERATOR BULK MATERIALS HANDLING PLANT OPERATOR jam1 Leticia Smith, Reg Reg gb Alli Benson, Reg Reg lg Reese Keller, PA-C PA-C ar2 Cherise Terrell RN RN mk4 The chart was reviewed and I authenticate all verbal orders and agree with the evaluation and treatment provided.Attachments: 11:29 [facility] [place] Payment Agreement lg 12:40 T-Sheet-- Draft Copy gb Chart Complete MTDD
--- NOTE | 2016-02-23 16:05 | EDDOCDS ---
Nurse's Notes [facility] Name: Richelle Sandoval Age: 25 yrs Sex: Female : 1990 Arrival Date: 02/21/2016 Time: 09:10 Bed I4 / M4 Private MD: No Pcp Diagnosis: Acute vaginitis-bacterial vaginosis Presentation: 02/20 09:25 Presenting complaint: Patient states: she has a bacterial vaginal infection but now she kcs has a lot of pain going up into her stomach - started 1 month ago. Adult Sepsis Screening: The patient does not have new or worsening altered mentation. Patient's respiratory rate is less than 22. Systolic blood pressure is greater than 100. Patient has a qSOFA score of 0- Negative Sepsis Screen. Suicide/Homicide risk assessment- the patient denies having any suicidal and/or homicidal ideations and does not present with any other emotional, behavioral or mental health complaints. Status: Patient is not a patient services rep or dependent. Transition of care: patient was not received from another setting of care. 09:25 Acuity: VERO Level 3 kcs 09:25 Method Of Arrival: Walkin/Carried/Asstd kcs Triage Assessment: 09:27 General: Appears comfortable, well developed, well nourished, Behavior is cooperative, kcs pleasant. Pain: Location: abdomen Pain currently is 5 out of 10 on a pain scale. HIV screening NA for this visit Offered previously. Neurological: Level of Consciousness is awake, alert. Respiratory: Airway is patent Respiratory effort is even, unlabored, Respiratory pattern is regular, symmetrical. : Reports discharge. Derm: Skin is intact, is healthy with good turgor, Skin is dry, Skin is normal. AREA CAPTAIN: 09:27 LMP N/A - control method kcs Historical: - Allergies: Amoxicillin (Hives); PENICILLINS (Hives); - Home Meds: 1. Depo-Provera 150 mg/mL IM susp every 3 mo - PMHx: Kidney stones; - PSHx: had mirena removed; - Social history: Smoking status: Patient uses tobacco products, heavy tobacco smoker. No barriers to communication noted, The patient speaks fluent Swedish. - Family history: Not pertinent. - : The pt / caregiver states he / she is not on anticoagulants. Home medication list is obtained from the patient, [employer] import data. - Exposure Risk Screening:: None identified. Screenin:57 Screening information is obtained from the patient. Primary language is Swedish. Fall jam1 risk: No risks identified. Assistance ADL's: requires no assistance with activities of daily living. Abuse/DV Screen: The patient / caregiver reports he/she is: not in a situation that causes fear, pain or injury. Nutritional screening: No deficits noted. Exposure Risk Screening: None identified. Advance Directives: Currently, there is no health care proxy. There is no active DNR order. There is no living will. There is no Power of Grading Machine Operator. Advance directive information has not previously been placed in an [facility] medical record. Further advance directive information is declined. home support is adequate. Assessment: 10:00 General: Appears in no apparent distress. Pain: Location: abdomen. GI: Reports mk4 bloating. : Reports a bacterial vag infection. 11:31 General: Appears in no apparent distress, comfortable, pt concerned that she is mk4 "bloated" but denies any further compalints of abd pain. Respiratory: Airway is patent Respiratory effort is even, unlabored, Respiratory pattern is regular. Vital Signs: 09:12 BP 130 / 70; Pulse 110; Resp 16; Temp 97.2(O); Pulse Ox 99% ; Weight 58.97 kg; Height 5 cmb ft. 6 in. (167.64 cm); Pain 5/10; 11:22 BP 117 / 60; Pulse 85; Resp 18; Temp 98.6; Pulse Ox 98% ; Pain 5/10; jam1 09:12 Body Mass Index 20.98 (58.97 kg, 167.64 cm) cmb Vitals: 09:12 Log In Time: February 21, 2016 at 09:10. cmb ED Course: 09:11 Patient visited by Mimi Glynn. cmb 09:11 Patient moved to Waiting cmb 09:12 No Pcp is Private Physician. cmb 09:13 Patient moved to Pre RCE cmb 09:26 Triage Initiated kcs 09:28 Patient moved to Triage 2 kcs 09:29 Reese Keller PA-C is PHCP. ar2 09:29 Ethel Issa MD is Attending Physician. ar2 09:29 Patient visited by Reese Keller PA-C. ar2 09:49 Patient moved to I3 / M3 bcj 09:50 Patient moved to I4 / M4 srm 10:00 Patient visited by Cherise Terrell RN. mk4 10:00 The patient / caregiver is instructed regarding the plan of care and ED course. mk4 10:00 No IV's were initiated during this patient's visit. mk4 10:03 Pt greeted and oriented to ED. Patient advised of names of staff involved in care, jam1 location of call bradley, wait times and NPO status. Patient has correct armband on for positive identification. Placed in gown. Bed in low position. Call light in reach. Side rails up X 1. Door closed. 10:20 Urine Culture Sent. srm 10:20 UA Sent. srm 10:20 GC & Chlamydia Amplification Sent. srm 10:20 Wet Prep Sent. srm 10:46 Patient visited by Cherise Terrell RN. mk4 11:04 Tommy Chapin CNM is Referral Physician. ar2 11:29 [place] [place] Agreement was scanned into [employer] and attached to record. lg 11:31 Assist provider with pelvic exam: Set up pelvic tray. Specimens sent to lab. Performed mk4 by Reese Keller PA-C. 12:40 T-Sheet-- Draft Copy was scanned into [employer] and attached to record. gb Point of Care Testing: Urine : 10:20 hCG Reading: Negative; Control Reading: Positive; srm Ranges: Order Results: Lab Order: UA; SPEC'M 02/21/16 10:11 Test: APPEARANCE, URINE; Value: HAZY; Range: CLEAR; Status: F Test: COLOR, URINE; Value: YELLOW; Range: YELLOW; Status: F Test: PH,URINE; Value: 6.0; Range: 5.0-9.0; Units: UNITS; Status: F Test: SPECIFIC GRAVITY URINE AUTO; Value: 1.024; Range: 1.002-1.035; Status: F Test: PROTEIN, URINE AUTO; Value: NEGATIVE; Range: NEGATIVE; Units: mg/dL; Status: F Test: GLUCOSE, URINE (UA) AUTO; Value: NEGATIVE; Range: NEGATIVE; Units: mg/dL; Status: F Test: KETONE, URINE AUTO; Value: NEGATIVE; Range: NEGATIVE; Units: mg/dL; Status: F Test: UROBILINOGEN, URINE AUTO; Value: 0.2; Range: 0.0-2.0; Units: mg/dL; Status: F Test: BILIRUBIN, URINE AUTO; Value: NEGATIVE; Range: NEGATIVE; Status: F Test: NITRITE, URINE AUTO; Value: NEGATIVE; Range: NEGATIVE; Status: F Test: LEUKOCYTE ESTERASE, URINE AUTO; Value: NEGATIVE; Range: NEGATIVE; Status: F Test: BLOOD, URINE BLOOD; Value: NEGATIVE; Range: NEGATIVE; Status: F Test: WBC, URINE AUTO; Value: 1; Range: 0-3; Units: /HPF; Status: F Test: RBC, URINE AUTO; Value: 1; Range: 0-3; Units: /HPF; Status: F Test: BACTERIA, URINE AUTO; Value: 1+; Range: NEGATIVE; Abnormal: Above high normal; Status: F Test: SQUAMOUS EPITHELIAL CELL UR AU; Value: 5; Range: 0-6; Units: /HPF; Status: F Test: MUCUS, URINE; Value: SMALL; Range: NEGATIVE; Status: F Test: HYALINE CAST, URINE AUTO; Value: 0; Range: 0-1; Units: /LPF; Status: F Lab Order: Urine Culture; SPEC'M 02/21/16 10:11 Test: URINE CULTURE; Value: ORGANISM 1: ESCHERICHIA COLI; Status: F Test: URINE CULTURE; Value: ESCHERICHIA COLI; Status: F Test: URINE CULTURE; Value: COLONY COUNT CFU/ml >100,000; Status: F Test: URINE CULTURE; Value: GRAM NEG SENSI - VITEK 80; Status: F Test: URINE CULTURE; Value: Method: VIT2; Status: F Test: URINE CULTURE; Value: EXTD BRD SPCTRM BETA LACTAMASE -; Status: F Test: URINE CULTURE; Value: TRIMETHOPRIM/SULFAMETHOXAZOLE <=20 S; Status: F Test: URINE CULTURE; Value: AMPICILLIN 4 S; Status: F Test: URINE CULTURE; Value: GENTAMICIN <=1 S; Status: F Test: URINE CULTURE; Value: NITROFURANTOIN <=16 S; Status: F Test: URINE CULTURE; Value: CEFAZOLIN <=4 S; Status: F Test: URINE CULTURE; Value: LEVOFLOXACIN <=0.12 S; Status: F Test: URINE CULTURE; Value: TOBRAMYCIN <=1 S; Status: F Test: URINE CULTURE; Value: CEFTRIAXONE <=1 S; Status: F Test: URINE CULTURE; Value: CEFTAZIDIME <=1 S; Status: F Test: URINE CULTURE; Value: AMPICILLIN/SULBACTAM <=2 S; Status: F Test: URINE CULTURE; Value: PIPERACILLIN/TAZOBACTAM <=4 S; Status: F Test: URINE CULTURE; Value: AZTREONAM <=1 S; Status: F Test: URINE CULTURE; Value: ERTAPENEM <=0.5 S; Status: F Test: URINE CULTURE; Value: MEROPENEM <=0.25 S; Status: F Test: URINE CULTURE; Value: TIGECYCLINE <=0.5 S; Status: F Test: URINE CULTURE; Value: CEFEPIME <=1 S; Status: F Lab Order: Wet Prep; SPEC'M 02/21/16 10:11 Test: WET PREP; Value: WET PREP RESULT; Status: F Test: WET PREP; Value: MANY EPITHELIAL CELLS PRESENT; Status: F Test: WET PREP; Value: MANY WBC; Status: F Test: WET PREP; Value: MODERATE RBC; Status: F Test: WET PREP; Value: FEW CLUE CELLS PRESENT; Status: F Test: WET PREP; Value: MODERATE SHORT RODS PRESENT; Status: F Lab Order: GC & Chlamydia Amplification; SPEC'M 02/21/16 10:11 Test: CHLAMYDIA DNA AMPLIFICATION; Value: NEGATIVE; Range: NEGATIVE; Status: F Test: GC DNA AMPLIFICATION; Value: NEGATIVE; Range: NEGATIVE; Status: F Outcome: 11:05 Discharge ordered by Provider. ar2 11:29 Patient left the ED. jam1 11:31 Discharge Assessment: Patient awake, alert and oriented x 3. No cognitive and/or mk4 functional deficits noted. Patient verbalized understanding of disposition instructions. Patient awake and alert. Discharge Assessment: patient administered narcotics - no. The following High Risk Discharge criteria are identified: None. Condition: good Condition: stable. No special radiology studies were completed. Property sent home with patient. Addendum: 02/23/2016 14:13 Narrative: Urine culture results reviewed by MONICA Moreno. Pt contacted and [facility] prescription for Macrobid 100mg po BID x 10 days called into [facility]. 15:23 Narrative: Wet prep results reviewed by MONICA Moreno and no changes made. [facility] Signatures: Awilda Rodriguez, RN RN Elie Villagran, RN RN Kaitlin Reeves, RN RN Yesenia Sims, RN RN Tatum Godoy, IVY FINISHED CIGAR MAKER jam1 Leticia Smith, Reg Reg gb Alli Benson, Reg Reg lg Reese Keller, PA-C PA-C Mimi Dash Margaret RN RN mk4 Chart Complete MTDD
--- NOTE | 2016-02-23 16:05 | EDDOCDS ---
Physician Documentation [facility] Name: Richelle Sandoval Age: 25 yrs Sex: Female : 1990 Arrival Date: 02/21/2016 Time: 09:10 Bed I4 / M4 Private MD: No Pcp Disposition: 02/21/16 11:05 Discharged to Home/Self Care. Impression: Acute vaginitis - bacterial vaginosis. - Condition is Stable. - Discharge Instructions: Bacterial Vaginosis. - Prescriptions for Flagyl 500 mg Oral Tablet - take 1 tablet by ORAL route every 12 hours for 7 days; 14 tablet. Ibuprofen 600 mg Oral Tablet - take 1 tablet by ORAL route every 6 hours As needed take with food; 30 tablet. - Medication Reconciliation, Local Pharmacy Hours form. - Follow up: Tommy Chapin CNM; When: Call to arrange an appointment; Reason: Recheck today's complaints, Continuance of care. Follow up: Emergency Department; When: As needed; Reason: severe pain, fevers, nausea/vomiting. - Problem is new. - Symptoms are unchanged. - Notes: you will contacted with lab results, call tomorrow afternoon if you have not received a call. call your nursing home director for a follow up appointment Historical: - Allergies: Amoxicillin (Hives); PENICILLINS (Hives); - Home Meds: 1. Depo-Provera 150 mg/mL IM susp every 3 mo - PMHx: Kidney stones; - PSHx: had mirena removed; - Social history: Smoking status: Patient uses tobacco products, heavy tobacco smoker. No barriers to communication noted, The patient speaks fluent Beninese. - Family history: Not pertinent. - : The pt / caregiver states he / she is not on anticoagulants. Home medication list is obtained from the patient, [employer] import data. - Exposure Risk Screening:: None identified. LICENSED STAFF MFT: 02/20 09:27 LMP N/A - control method kcs Vital Signs: 09:12 BP 130 / 70; Pulse 110; Resp 16; Temp 97.2(O); Pulse Ox 99% ; Weight 58.97 kg / 130.01 cmb lbs; Height 5 ft. 6 in. (167.64 cm); Pain 5/10; 11:22 BP 117 / 60; Pulse 85; Resp 18; Temp 98.6; Pulse Ox 98% ; Pain 5/10; jam1 09:12 Body Mass Index 20.98 (58.97 kg, 167.64 cm) cmb MDM: 09:37 UCG by Nursing ordered. ar2 09:37 Set up pelvic ordered. ar2 09:37 Undress patient appropriately for examination ordered. ar2 09:38 UA Ordered. EDMS 09:38 GC & Chlamydia Amplification Ordered. EDMS 09:38 Urine Culture Ordered. EDMS 09:38 Wet Prep Ordered. EDMS 09:47 Financial registration complete. lg 10:48 UA Reviewed. ar2 10:48 Wet Prep Reviewed. ar2 11:29 [facility] Payment Agreement was scanned into [employer] and attached to record. lg 12:40 T-Sheet-- Draft Copy was scanned into [employer] and attached to record. gb Point of Care Testing: Urine : 10:20 hCG Reading: Negative; Control Reading: Positive; srm Ranges: Signatures: Dispatcher [employer] Awilda Retana, RN RN kcs Tatum Flores, FLOOR CARE SPECIALIST FLOOR CARE SPECIALIST jam1 Leticia Smith, Reg Reg gb Alli Benson, Reg Reg lg Reese Keller, PA-C PA-C ar2 Cherise Terrell RN RN mk4 The chart was reviewed and I authenticate all verbal orders and agree with the evaluation and treatment provided.Attachments: 11:29 [facility] Payment Agreement lg 12:40 T-Sheet-- Draft Copy gb Chart Complete MTDD
--- NOTE | 2016-02-23 16:05 | EDDOCDS ---
Physician Documentation [facility] Name: Richelle Sandoval Age: 25 yrs Sex: Female : 1990 Arrival Date: 02/21/2016 Time: 09:10 Bed I4 / M4 Private MD: No Pcp Disposition: 02/21/16 11:05 Discharged to Home/Self Care. Impression: Acute vaginitis - bacterial vaginosis. - Condition is Stable. - Discharge Instructions: Bacterial Vaginosis. - Prescriptions for Flagyl 500 mg Oral Tablet - take 1 tablet by ORAL route every 12 hours for 7 days; 14 tablet. Ibuprofen 600 mg Oral Tablet - take 1 tablet by ORAL route every 6 hours As needed take with food; 30 tablet. - Medication Reconciliation, Local Pharmacy Hours form. - Follow up: Tommy Chapin CNM; When: Call to arrange an appointment; Reason: Recheck today's complaints, Continuance of care. Follow up: Emergency Department; When: As needed; Reason: severe pain, fevers, nausea/vomiting. - Problem is new. - Symptoms are unchanged. - Notes: you will contacted with lab results, call tomorrow afternoon if you have not received a call. call your ballet professor for a follow up appointment Historical: - Allergies: Amoxicillin (Hives); PENICILLINS (Hives); - Home Meds: 1. Depo-Provera 150 mg/mL IM susp every 3 mo - PMHx: Kidney stones; - PSHx: had mirena removed; - Social history: Smoking status: Patient uses tobacco products, heavy tobacco smoker. No barriers to communication noted, The patient speaks fluent [place] Islander. - Family history: Not pertinent. - : The pt / caregiver states he / she is not on anticoagulants. Home medication list is obtained from the patient, [employer] import data. - Exposure Risk Screening:: None identified. TECHNICAL WRITING LEAD/MGR: 02/20 09:27 LMP N/A - control method kcs Vital Signs: 09:12 BP 130 / 70; Pulse 110; Resp 16; Temp 97.2(O); Pulse Ox 99% ; Weight 58.97 kg / 130.01 cmb lbs; Height 5 ft. 6 in. (167.64 cm); Pain 5/10; 11:22 BP 117 / 60; Pulse 85; Resp 18; Temp 98.6; Pulse Ox 98% ; Pain 5/10; jam1 09:12 Body Mass Index 20.98 (58.97 kg, 167.64 cm) cmb MDM: 09:37 UCG by Nursing ordered. ar2 09:37 Set up pelvic ordered. ar2 09:37 Undress patient appropriately for examination ordered. ar2 09:38 UA Ordered. EDMS 09:38 GC & Chlamydia Amplification Ordered. EDMS 09:38 Urine Culture Ordered. EDMS 09:38 Wet Prep Ordered. EDMS 09:47 Financial registration complete. lg 10:48 UA Reviewed. ar2 10:48 Wet Prep Reviewed. ar2 11:29 [facility] [place] Payment Agreement was scanned into [employer] and attached to record. lg 12:40 T-Sheet-- Draft Copy was scanned into [employer] and attached to record. gb Point of Care Testing: Urine : 10:20 hCG Reading: Negative; Control Reading: Positive; srm Ranges: Signatures: Dispatcher [employer] Awilda Retana, RN RN kcs Tatum Flores, FREIGHT BROKER FREIGHT BROKER jam1 Leticia Smith, Reg Reg gb Alli Benson, Reg Reg lg Reese Keller, PA-C PA-C ar2 Cherise Terrell RN RN mk4 The chart was reviewed and I authenticate all verbal orders and agree with the evaluation and treatment provided.Attachments: 11:29 [facility] [place] Payment Agreement lg 12:40 T-Sheet-- Draft Copy gb Chart Complete MTDD
--- NOTE | 2016-02-23 16:42 | EDDOCDS ---
Physician Documentation [facility] Name: Richelle Sandoval Age: 25 yrs Sex: Female : 1990 Arrival Date: 02/21/2016 Time: 09:10 Bed I4 / M4 Private MD: No Pcp Disposition: 02/21/16 11:05 Discharged to Home/Self Care. Impression: Acute vaginitis - bacterial vaginosis. - Condition is Stable. - Discharge Instructions: Bacterial Vaginosis. - Prescriptions for Flagyl 500 mg Oral Tablet - take 1 tablet by ORAL route every 12 hours for 7 days; 14 tablet. Ibuprofen 600 mg Oral Tablet - take 1 tablet by ORAL route every 6 hours As needed take with food; 30 tablet. - Medication Reconciliation, Local Pharmacy Hours form. - Follow up: Tommy Chapin CNM; When: Call to arrange an appointment; Reason: Recheck today's complaints, Continuance of care. Follow up: Emergency Department; When: As needed; Reason: severe pain, fevers, nausea/vomiting. - Problem is new. - Symptoms are unchanged. - Notes: you will contacted with lab results, call tomorrow afternoon if you have not received a call. call your ham curer for a follow up appointment Historical: - Allergies: Amoxicillin (Hives); PENICILLINS (Hives); - Home Meds: 1. Depo-Provera 150 mg/mL IM susp every 3 mo - PMHx: Kidney stones; - PSHx: had mirena removed; - Social history: Smoking status: Patient uses tobacco products, heavy tobacco smoker. No barriers to communication noted, The patient speaks fluent Swazi. - Family history: Not pertinent. - : The pt / caregiver states he / she is not on anticoagulants. Home medication list is obtained from the patient, [employer] import data. - Exposure Risk Screening:: None identified. ENDOCRINOLOGY TEACHER: 02/20 09:27 LMP N/A - control method kcs Vital Signs: 09:12 BP 130 / 70; Pulse 110; Resp 16; Temp 97.2(O); Pulse Ox 99% ; Weight 58.97 kg / 130.01 cmb lbs; Height 5 ft. 6 in. (167.64 cm); Pain 5/10; 11:22 BP 117 / 60; Pulse 85; Resp 18; Temp 98.6; Pulse Ox 98% ; Pain 5/10; jam1 09:12 Body Mass Index 20.98 (58.97 kg, 167.64 cm) cmb MDM: 09:37 UCG by Nursing ordered. ar2 09:37 Set up pelvic ordered. ar2 09:37 Undress patient appropriately for examination ordered. ar2 09:38 UA Ordered. EDMS 09:38 GC & Chlamydia Amplification Ordered. EDMS 09:38 Urine Culture Ordered. EDMS 09:38 Wet Prep Ordered. EDMS 09:47 Financial registration complete. lg 10:48 UA Reviewed. ar2 10:48 Wet Prep Reviewed. ar2 11:29 [facility] [place] Payment Agreement was scanned into [employer] and attached to record. lg 12:40 T-Sheet-- Draft Copy was scanned into [employer] and attached to record. gb Point of Care Testing: Urine : 10:20 hCG Reading: Negative; Control Reading: Positive; srm Ranges: Signatures: Dispatcher [employer] Awilda Retana, RN RN kcs Tatum Flores, FISH AND WILDLIFE BIOLOGIST FISH AND WILDLIFE BIOLOGIST jam1 Leticia Smith, Reg Reg gb Alli Benson, Reg Reg lg Reese Keller, PA-C PA-C ar2 Cherise Terrell RN RN mk4 The chart was reviewed and I authenticate all verbal orders and agree with the evaluation and treatment provided.Attachments: 11:29 [facility] Payment Agreement lg 12:40 T-Sheet-- Draft Copy gb Chart Complete MTDD
--- NOTE | 2016-02-23 16:42 | EDDOCDS ---
Physician Documentation [facility] Name: Richelle Sandoval Age: 25 yrs Sex: Female : 1990 Arrival Date: 02/21/2016 Time: 09:10 Bed I4 / M4 Private MD: No Pcp Disposition: 02/21/16 11:05 Discharged to Home/Self Care. Impression: Acute vaginitis - bacterial vaginosis. - Condition is Stable. - Discharge Instructions: Bacterial Vaginosis. - Prescriptions for Flagyl 500 mg Oral Tablet - take 1 tablet by ORAL route every 12 hours for 7 days; 14 tablet. Ibuprofen 600 mg Oral Tablet - take 1 tablet by ORAL route every 6 hours As needed take with food; 30 tablet. - Medication Reconciliation, Local Pharmacy Hours form. - Follow up: Tommy Chapin CNM; When: Call to arrange an appointment; Reason: Recheck today's complaints, Continuance of care. Follow up: Emergency Department; When: As needed; Reason: severe pain, fevers, nausea/vomiting. - Problem is new. - Symptoms are unchanged. - Notes: you will contacted with lab results, call tomorrow afternoon if you have not received a call. call your textile designer for a follow up appointment Historical: - Allergies: Amoxicillin (Hives); PENICILLINS (Hives); - Home Meds: 1. Depo-Provera 150 mg/mL IM susp every 3 mo - PMHx: Kidney stones; - PSHx: had mirena removed; - Social history: Smoking status: Patient uses tobacco products, heavy tobacco smoker. No barriers to communication noted, The patient speaks fluent Ugandan. - Family history: Not pertinent. - : The pt / caregiver states he / she is not on anticoagulants. Home medication list is obtained from the patient, [employer] import data. - Exposure Risk Screening:: None identified. 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 6 in. (167.64 cm); Pain 5/10; 11:22 BP 117 / 60; Pulse 85; Resp 18; Temp 98.6; Pulse Ox 98% ; Pain 5/10; jam1 09:12 Body Mass Index 20.98 (58.97 kg, 167.64 cm) cmb MDM: 09:37 UCG by Nursing ordered. ar2 09:37 Set up pelvic ordered. ar2 09:37 Undress patient appropriately for examination ordered. ar2 09:38 UA Ordered. EDMS 09:38 GC & Chlamydia Amplification Ordered. EDMS 09:38 Urine Culture Ordered. EDMS 09:38 Wet Prep Ordered. EDMS 09:47 Financial registration complete. lg 10:48 UA Reviewed. ar2 10:48 Wet Prep Reviewed. ar2 11:29 [facility] [place] Payment Agreement was scanned into [employer] and attached to record. lg 12:40 T-Sheet-- Draft Copy was scanned into [employer] and attached to record. gb Point of Care Testing: Urine : 10:20 hCG Reading: Negative; Control Reading: Positive; srm Ranges: Signatures: Dispatcher [employer] Awilda Retana, RN RN kcs Tatum Flores, PEG DRIVER PEG DRIVER jam1 Leticia Smith, Reg Reg gb Alli Benson, Reg Reg lg Reese Keller, PA-C PA-C ar2 Cherise Terrell RN RN mk4 The chart was reviewed and I authenticate all verbal orders and agree with the evaluation and treatment provided.Attachments: 11:29 [facility] [place] Payment Agreement lg 12:40 T-Sheet-- Draft Copy gb Chart Complete MTDD
--- NOTE | 2016-02-23 16:42 | EDDOCDS ---
Nurse's Notes [facility] Name: Richelle Sandoval Age: 25 yrs Sex: Female : 1990 Arrival Date: 02/21/2016 Time: 09:10 Bed I4 / M4 Private MD: No Pcp Diagnosis: Acute vaginitis-bacterial vaginosis Presentation: 02/20 09:25 Presenting complaint: Patient states: she has a bacterial vaginal infection but now she kcs has a lot of pain going up into her stomach - started 1 month ago. Adult Sepsis Screening: The patient does not have new or worsening altered mentation. Patient's respiratory rate is less than 22. Systolic blood pressure is greater than 100. Patient has a qSOFA score of 0- Negative Sepsis Screen. Suicide/Homicide risk assessment- the patient denies having any suicidal and/or homicidal ideations and does not present with any other emotional, behavioral or mental health complaints. 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 Transition of care: patient was not received from another setting of care. 09:25 Acuity: VERO Level 3 kcs 09:25 Method Of Arrival: Walkin/Carried/Asstd kcs Triage Assessment: 09:27 General: Appears comfortable, well developed, well nourished, Behavior is cooperative, kcs pleasant. Pain: Location: abdomen Pain currently is 5 out of 10 on a pain scale. HIV screening NA for this visit Offered previously. Neurological: Level of Consciousness is awake, alert. Respiratory: Airway is patent Respiratory effort is even, unlabored, Respiratory pattern is regular, symmetrical. : Reports discharge. Derm: Skin is intact, is healthy with good turgor, Skin is dry, Skin is normal. 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 Depo-Provera 150 mg/mL IM susp every 3 mo - PMHx: Kidney stones; - PSHx: had mirena removed; - Social history: Smoking status: Patient uses tobacco products, heavy tobacco smoker. No barriers to communication noted, The patient speaks fluent Mohawk. - Family history: Not pertinent. - : The pt / caregiver states he / she is not on anticoagulants. Home medication list is obtained from the patient, [employer] import data. - Exposure Risk Screening:: None identified. Screenin:57 Screening information is obtained from the patient. Primary language is Mohawk. Fall jam1 risk: No risks identified. Assistance ADL's: requires no assistance with activities of daily living. Abuse/DV Screen: The patient / caregiver reports he/she is: not in a situation that causes fear, pain or injury. Nutritional screening: No deficits noted. Exposure Risk Screening: None identified. Advance Directives: Currently, there is no health care proxy. There is no active DNR order. There is no living will. There is no Power of Network Operations Center Technician. Advance directive information has not previously been placed in an [facility] medical record. Further advance directive information is declined. home support is adequate. Assessment: 10:00 General: Appears in no apparent distress. Pain: Location: abdomen. GI: Reports mk4 bloating. : Reports a bacterial vag infection. 11:31 General: Appears in no apparent distress, comfortable, pt concerned that she is mk4 "bloated" but denies any further compalints of abd pain. Respiratory: Airway is patent Respiratory effort is even, unlabored, Respiratory pattern is regular. Vital Signs: 09:12 BP 130 / 70; Pulse 110; Resp 16; Temp 97.2(O); Pulse Ox 99% ; Weight 58.97 kg; Height 5 cmb ft. 6 in. (167.64 cm); Pain 5/10; 11:22 BP 117 / 60; Pulse 85; Resp 18; Temp 98.6; Pulse Ox 98% ; Pain 5/10; jam1 09:12 Body Mass Index 20.98 (58.97 kg, 167.64 cm) cmb Vitals: 09:12 Log In Time: February 21, 2016 at 09:10. cmb ED Course: 09:11 Patient visited by Mimi Glynn. cmb 09:11 Patient moved to Waiting cmb 09:12 No Pcp is Private Physician. cmb 09:13 Patient moved to Pre RCE cmb 09:26 Triage Initiated kcs 09:28 Patient moved to Triage 2 kcs 09:29 Reese Keller PA-C is PHCP. ar2 09:29 Ethel Issa MD is Attending Physician. ar2 09:29 Patient visited by Reese Keller PA-C. ar2 09:49 Patient moved to I3 / M3 bcj 09:50 Patient moved to I4 / M4 srm 10:00 Patient visited by Cherise Terrell RN. mk4 10:00 The patient / caregiver is instructed regarding the plan of care and ED course. mk4 10:00 No IV's were initiated during this patient's visit. mk4 10:03 Pt greeted and oriented to ED. Patient advised of names of staff involved in care, jam1 location of call bradley, wait times and NPO status. Patient has correct armband on for positive identification. Placed in gown. Bed in low position. Call light in reach. Side rails up X 1. Door closed. 10:20 Urine Culture Sent. srm 10:20 UA Sent. srm 10:20 GC & Chlamydia Amplification Sent. srm 10:20 Wet Prep Sent. srm 10:46 Patient visited by Cherise Terrell RN. mk4 11:04 Tommy Chapin CNM is Referral Physician. ar2 11:29 [facility] [place] was scanned into [employer] and attached to record. lg 11:31 Assist provider with pelvic exam: Set up pelvic tray. Specimens sent to lab. Performed mk4 by Reese Keller PA-C. 12:40 T-Sheet-- Draft Copy was scanned into [employer] and attached to record. gb Point of Care Testing: Urine : 10:20 hCG Reading: Negative; Control Reading: Positive; srm Ranges: Order Results: Lab Order: UA; SPEC'M 02/21/16 10:11 Test: APPEARANCE, URINE; Value: HAZY; Range: CLEAR; Status: F Test: COLOR, URINE; Value: YELLOW; Range: YELLOW; Status: F Test: PH,URINE; Value: 6.0; Range: 5.0-9.0; Units: UNITS; Status: F Test: SPECIFIC GRAVITY URINE AUTO; Value: 1.024; Range: 1.002-1.035; Status: F Test: PROTEIN, URINE AUTO; Value: NEGATIVE; Range: NEGATIVE; Units: mg/dL; Status: F Test: GLUCOSE, URINE (UA) AUTO; Value: NEGATIVE; Range: NEGATIVE; Units: mg/dL; Status: F Test: KETONE, URINE AUTO; Value: NEGATIVE; Range: NEGATIVE; Units: mg/dL; Status: F Test: UROBILINOGEN, URINE AUTO; Value: 0.2; Range: 0.0-2.0; Units: mg/dL; Status: F Test: BILIRUBIN, URINE AUTO; Value: NEGATIVE; Range: NEGATIVE; Status: F Test: NITRITE, URINE AUTO; Value: NEGATIVE; Range: NEGATIVE; Status: F Test: LEUKOCYTE ESTERASE, URINE AUTO; Value: NEGATIVE; Range: NEGATIVE; Status: F Test: BLOOD, URINE BLOOD; Value: NEGATIVE; Range: NEGATIVE; Status: F Test: WBC, URINE AUTO; Value: 1; Range: 0-3; Units: /HPF; Status: F Test: RBC, URINE AUTO; Value: 1; Range: 0-3; Units: /HPF; Status: F Test: BACTERIA, URINE AUTO; Value: 1+; Range: NEGATIVE; Abnormal: Above high normal; Status: F Test: SQUAMOUS EPITHELIAL CELL UR AU; Value: 5; Range: 0-6; Units: /HPF; Status: F Test: MUCUS, URINE; Value: SMALL; Range: NEGATIVE; Status: F Test: HYALINE CAST, URINE AUTO; Value: 0; Range: 0-1; Units: /LPF; Status: F Lab Order: Urine Culture; SPEC'M 02/21/16 10:11 Test: URINE CULTURE; Value: ORGANISM 1: ESCHERICHIA COLI; Status: F Test: URINE CULTURE; Value: ESCHERICHIA COLI; Status: F Test: URINE CULTURE; Value: COLONY COUNT CFU/ml >100,000; Status: F Test: URINE CULTURE; Value: GRAM NEG SENSI - VITEK 80; Status: F Test: URINE CULTURE; Value: Method: VIT2; Status: F Test: URINE CULTURE; Value: EXTD BRD SPCTRM BETA LACTAMASE -; Status: F Test: URINE CULTURE; Value: TRIMETHOPRIM/SULFAMETHOXAZOLE <=20 S; Status: F Test: URINE CULTURE; Value: AMPICILLIN 4 S; Status: F Test: URINE CULTURE; Value: GENTAMICIN <=1 S; Status: F Test: URINE CULTURE; Value: NITROFURANTOIN <=16 S; Status: F Test: URINE CULTURE; Value: CEFAZOLIN <=4 S; Status: F Test: URINE CULTURE; Value: LEVOFLOXACIN <=0.12 S; Status: F Test: URINE CULTURE; Value: TOBRAMYCIN <=1 S; Status: F Test: URINE CULTURE; Value: CEFTRIAXONE <=1 S; Status: F Test: URINE CULTURE; Value: CEFTAZIDIME <=1 S; Status: F Test: URINE CULTURE; Value: AMPICILLIN/SULBACTAM <=2 S; Status: F Test: URINE CULTURE; Value: PIPERACILLIN/TAZOBACTAM <=4 S; Status: F Test: URINE CULTURE; Value: AZTREONAM <=1 S; Status: F Test: URINE CULTURE; Value: ERTAPENEM <=0.5 S; Status: F Test: URINE CULTURE; Value: MEROPENEM <=0.25 S; Status: F Test: URINE CULTURE; Value: TIGECYCLINE <=0.5 S; Status: F Test: URINE CULTURE; Value: CEFEPIME <=1 S; Status: F Lab Order: Wet Prep; SPEC'M 02/21/16 10:11 Test: WET PREP; Value: WET PREP RESULT; Status: F Test: WET PREP; Value: MANY EPITHELIAL CELLS PRESENT; Status: F Test: WET PREP; Value: MANY WBC; Status: F Test: WET PREP; Value: MODERATE RBC; Status: F Test: WET PREP; Value: FEW CLUE CELLS PRESENT; Status: F Test: WET PREP; Value: MODERATE SHORT RODS PRESENT; Status: F Lab Order: GC & Chlamydia Amplification; SPEC'M 02/21/16 10:11 Test: CHLAMYDIA DNA AMPLIFICATION; Value: NEGATIVE; Range: NEGATIVE; Status: F Test: GC DNA AMPLIFICATION; Value: NEGATIVE; Range: NEGATIVE; Status: F Outcome: 11:05 Discharge ordered by Provider. ar2 11:29 Patient left the ED. jam1 11:31 Discharge Assessment: Patient awake, alert and oriented x 3. No cognitive and/or mk4 functional deficits noted. Patient verbalized understanding of disposition instructions. Patient awake and alert. Discharge Assessment: patient administered narcotics - no. The following High Risk Discharge criteria are identified: None. Condition: good Condition: stable. No special radiology studies were completed. Property sent home with patient. Addendum: 02/23/2016 14:13 Narrative: Urine culture results reviewed by MONICA Moreno. Pt contacted and [facility] prescription for Macrobid 100mg po BID x 10 days called into [facility]. 15:23 Narrative: Wet prep results reviewed by MONICA Moreno and no changes made. [facility] Signatures: Awilda Rodriguez, RN RN Elie Villagran, RN RN Kaitlin Reeves, RN RN Yesenia Sims, RN RN Tatum Godoy, IVY TAX ASSOCIATE ATTORNEY jam1 Leticia Smith, Reg Reg gb Alli Benson, Reg Reg lg Reese Keller, PA-C PA-C Mimi Dash Margaret RN RN mk4 Chart Complete MTDD
== END 2016-02-21 11:29 | disposition home or self-care (01) ==
LOC: M ED 09:10
DX: N76.0 Acute vaginitis (principal); F17.200 Nicotine dependence, unspecified, uncomplicated; Z79.3 Long term (current) use of hormonal contraceptives; Z88.0 Allergy status to penicillin; Z88.1 Allergy status to other antibiotic agents; Z87.442 Personal history of urinary calculi

== ENCOUNTER → 2016-05-25 | Outpatient (CLI) | payer MEDICAID | LOC: M SMT 13:56 | PROVIDERS: ATTEND Advanced Practice Midwife | DX: Z11.3 Encounter for screening for infections with a predominantly sexual mode of transmission (principal) ==

== ENCOUNTER → 2016-06-21 | Outpatient (REF) | payer OTHER | LOC: M LAB REF 11:45 | PROVIDERS: ATTEND Obstetrics & Gynecology | DX: R87.612 Low grade squamous intraepithelial lesion on cytologic smear of cervix (LGSIL) (principal) ==

== ENCOUNTER 2016-09-12 16:32 | Emergency (ER) | payer OTHER ==
[~2016-09-12] VITALS: Ht 165.1 cm; Wt 56.8 kg
[2016-09-12 16:33] VITALS: BP 129/74
[2016-09-12] MEDS ORDERED: MEDR15VL IM (16:41)
[2016-09-12] MEDS ORDERED: diphenhydrAMINE 25 MG CAP PO ONE (17:15)
== END 2016-09-12 17:24 | disposition home or self-care (01) ==
LOC: M ED 16:32
DX: R21 Rash and other nonspecific skin eruption (principal); W57.XXXA Bitten or stung by nonvenomous insect and other nonvenomous arthropods, initial encounter; Y93.9 Activity, unspecified

== ENCOUNTER → 2016-10-19 | Outpatient (REF) | payer OTHER ==
[~2016-10-19] MED LIST changes: +MEDR15VL IM
== END ==
LOC: M LAB REF 20:21
PROVIDERS: ATTEND Physician Assistant
DX: R30.0 Dysuria (principal)

== ENCOUNTER → 2016-12-06 | Outpatient (REF) | payer OTHER | LOC: M LAB REF 16:57 | PROVIDERS: ATTEND Obstetrics & Gynecology | DX: Z11.3 Encounter for screening for infections with a predominantly sexual mode of transmission (principal) ==

== ENCOUNTER → 2017-01-07 | Outpatient (REF) | payer OTHER | LOC: M LAB REF 16:17 | PROVIDERS: ATTEND Physician Assistant | DX: R30.0 Dysuria (principal) ==

== ENCOUNTER → 2017-02-04 | Outpatient (REF) | payer OTHER | LOC: M LAB REF 17:01 | PROVIDERS: ATTEND Physician Assistant | DX: N39.0 Urinary tract infection, site not specified (principal); N89.8 Other specified noninflammatory disorders of vagina ==

== ENCOUNTER → 2017-04-26 | Outpatient (REF) | payer OTHER ==
[2017-04-26 17:49] LABS: CHLAMYDIA DNA AMPLIFICATION NEGATIVE (NEGATIVE); GC DNA AMPLIFICATION NEGATIVE (NEGATIVE)
== END ==
LOC: M LAB REF 15:56
DX: R30.0 Dysuria (principal)

== ENCOUNTER → 2017-06-03 | Outpatient (CLI) | payer OTHER ==
[2017-06-03 20:01] LABS: CHLAMYDIA DNA AMPLIFICATION NEGATIVE (NEGATIVE); GC DNA AMPLIFICATION NEGATIVE (NEGATIVE)
== END ==
LOC: M SMT 11:08
DX: Z11.3 Encounter for screening for infections with a predominantly sexual mode of transmission (principal)
CPT/HCPCS: 87340

== ENCOUNTER 2017-07-18 12:09 | Outpatient (REF) | payer OTHER | END 2017-07-19 | LOC: M LAB REF 12:09 | DX: Z01.411 Encounter for gynecological examination (general) (routine) with abnormal findings (principal); R85.612 Low grade squamous intraepithelial lesion on cytologic smear of anus (LGSIL); R87.618 Other abnormal cytological findings on specimens from cervix uteri | CPT/HCPCS: 88142 ==

== ENCOUNTER → 2017-08-01 | Outpatient (REF) | payer OTHER ==
[2017-08-02 10:59] LABS: CHLAMYDIA DNA AMPLIFICATION NEGATIVE (NEGATIVE); GC DNA AMPLIFICATION NEGATIVE (NEGATIVE)
== END ==
LOC: M LAB REF 17:21
DX: Z11.3 Encounter for screening for infections with a predominantly sexual mode of transmission (principal)

== ENCOUNTER → 2017-09-18 | Outpatient (REF) | payer OTHER | LOC: M LAB REF 13:29 | DX: N87.0 Mild cervical dysplasia (principal) | CPT/HCPCS: 88305 ==

== ENCOUNTER → 2017-11-03 | Outpatient (REF) | payer OTHER ==
[2017-11-03 21:45] LABS: APPEARANCE, URINE CLEAR (CLEAR); BACTERIA, URINE AUTO NEGATIVE (NEGATIVE); BILIRUBIN, URINE AUTO NEGATIVE (NEGATIVE); BLOOD, URINE BLOOD NEGATIVE (NEGATIVE); COLOR, URINE YELLOW (YELLOW); GLUCOSE, URINE (UA) AUTO NEGATIVE (NEGATIVE); KETONE, URINE AUTO NEGATIVE (NEGATIVE); LEUKOCYTE ESTERASE, URINE AUTO 3+ (NEGATIVE); MUCUS, URINE SMALL (NEGATIVE); NITRITE, URINE AUTO NEGATIVE (NEGATIVE); PROTEIN, URINE AUTO NEGATIVE (NEGATIVE); RBC, URINE AUTO 3 /HPF (0-3); SQUAMOUS EPITHELIAL CELL UR AU 1 /HPF (0-6); UROBILINOGEN, URINE AUTO 0.2 mg/dL (0.0-2.0); WBC, URINE AUTO 93 /HPF (0-3)
== END ==
LOC: M LAB REF 09:21
DX: N39.0 Urinary tract infection, site not specified (principal)
CPT/HCPCS: 81001

== ENCOUNTER → 2017-11-10 | Outpatient (REF) | payer OTHER ==
[2017-11-10 22:24] LABS: CHLAMYDIA DNA AMPLIFICATION NEGATIVE (NEGATIVE); GC DNA AMPLIFICATION POSITIVE (NEGATIVE)
== END ==
LOC: M LAB REF 17:43
DX: R30.0 Dysuria (principal)

== ENCOUNTER → 2017-12-23 | Outpatient (REF) | payer OTHER ==
[2017-12-23 18:11] LABS: ALBUMIN 4.1 GM/DL (3.2-5.2); ALBUMIN/GLOBULIN RATIO 1.28 (1.00-1.93); ALKALINE PHOSPHATASE 82 U/L (45-117); ALT/SGPT 25 U/L (12-78); ANION GAP 9 MEQ/L (8-16); AST/SGOT 15 U/L (7-37); BILIRUBIN,TOTAL 0.8 MG/DL (0.2-1.0); BLOOD UREA NITROGEN 14 MG/DL (7-18); CALCIUM LEVEL 9.1 MG/DL (8.5-10.1); CARBON DIOXIDE LEVEL 25 MEQ/L (21-32); CHLORIDE LEVEL 107 MEQ/L (98-107); CREATININE FOR GFR 0.84 MG/DL (0.55-1.30); GLOMERULAR FILTRATION RATE > 60.0 (>60); GLUCOSE, FASTING 84 MG/DL (70-100); IRON (FE) 100 UG/DL (50-170); POTASSIUM SERUM 3.5 MEQ/L (3.5-5.1); SODIUM LEVEL 141 MEQ/L (136-145); TOTAL PROTEIN 7.3 GM/DL (6.4-8.2)
[2017-12-23 18:14] LABS: BASO # 0.1 10^3/uL (0.0-0.2); BASO % 0.7 % (0.0-1.0); EOS # 0.1 10^3/uL (0.0-0.50); EOS % 1.6 % (0.0-3.0); HEMATOCRIT 44.7 % (36.0-47.0); HEMOGLOBIN 15.1 g/dl (12.0-15.5); IMMATURE GRANULOCYTE % 0.3 % (0-3.0); LYMPH # 2.3 10^3/uL (1.5-6.5); LYMPH % 30.8 % (24.0-44.0); MEAN CORPUSCULAR HEMOGLOBIN 31.3 pg (27.0-33.0); MEAN CORPUSCULAR HGB CONC 33.8 g/dl (32.0-36.5); MEAN CORPUSCULAR VOLUME 92.7 fl (80.0-96.0); MONO # 0.7 10^3/uL (0.0-0.8); MONO % 9.8 % (0.0-5.0); NEUTROPHILS # 4.2 10^3/uL (1.8-7.7); NEUTROPHILS % 56.8 % (36.0-66.0); PLATELET COUNT, AUTOMATED 187 10^3/uL (150-450); RED BLOOD COUNT 4.82 10^6/uL (4.00-5.40); RED CELL DISTRIBUTION WIDTH 12.5 % (11.5-14.5); WHITE BLOOD COUNT 7.4 10^3/uL (4.0-10.0)
[2017-12-23 19:23] LABS: ESTIMATED AVERAGE GLUCOSE 100 MG/DL (60-110); HEMOGLOBIN A1c 5.1 %
== END ==
LOC: M LAB REF 16:37
DX: R68.89 Other general symptoms and signs (principal); Z13.9 Encounter for screening, unspecified

== ENCOUNTER 2018-01-15 00:17 | Emergency (ER) | payer OTHER ==
[2018-01-15 00:55] LABS: CARBOXYHEMOGLOBIN 8.1 % (0.0-1.5)
[2018-01-15 00:55] LABS: BASO % 0.4 % (0.0-1.0); EOS # 0.2 10^3/uL (0.0-0.50); EOS % 1.6 % (0.0-3.0); HEMATOCRIT 40.3 % (36.0-47.0); HEMOGLOBIN 13.8 g/dl (12.0-15.5); IMMATURE GRANULOCYTE % 0.3 % (0-3.0); LYMPH # 2.8 10^3/uL (1.5-6.5); LYMPH % 29.8 % (24.0-44.0); MEAN CORPUSCULAR HEMOGLOBIN 31.9 pg (27.0-33.0); MEAN CORPUSCULAR HGB CONC 34.2 g/dl (32.0-36.5); MEAN CORPUSCULAR VOLUME 93.1 fl (80.0-96.0); MONO # 0.8 10^3/uL (0.0-0.8); MONO % 8.7 % (0.0-5.0); NEUTROPHILS # 5.6 10^3/uL (1.8-7.7); NEUTROPHILS % 59.2 % (36.0-66.0); PLATELET COUNT, AUTOMATED 163 10^3/uL (150-450); RED BLOOD COUNT 4.33 10^6/uL (4.00-5.40); RED CELL DISTRIBUTION WIDTH 12.7 % (11.5-14.5); WHITE BLOOD COUNT 9.4 10^3/uL (4.0-10.0)
[2018-01-15] MEDS: METOCLOPRAMIDE INJ 10MG/2ML VIAL (J2765) IV (01:10)
[2018-01-15] MEDS: NS 1,000 ML IV (01:10)
[2018-01-15] MEDS: dexameTHASONE 20 MG/5 ML VIAL (J1100) IV (01:10)
[2018-01-15 01:20] LABS: ERYTHROCYTE SEDIMENTATION RATE 9 mm/hr (0-20)
[2018-01-15 01:27] LABS: ANION GAP 8 MEQ/L (8-16); BLOOD UREA NITROGEN 16 MG/DL (7-18); CALCIUM LEVEL 8.5 MG/DL (8.5-10.1); CARBON DIOXIDE LEVEL 25 MEQ/L (21-32); CHLORIDE LEVEL 109 MEQ/L (98-107); CREATININE FOR GFR 0.66 MG/DL (0.55-1.30); GLOMERULAR FILTRATION RATE > 60.0 (>60); GLUCOSE, FASTING 101 MG/DL (70-100); POTASSIUM SERUM 3.6 MEQ/L (3.5-5.1); SODIUM LEVEL 142 MEQ/L (136-145)
== END 2018-01-15 04:09 | disposition home or self-care (01) ==
LOC: M ED 00:17
DX: R51 Headache (principal); T58.91XA Toxic effect of carbon monoxide from unspecified source, accidental (unintentional), initial encounter; X58.XXXA Exposure to other specified factors, initial encounter; Y92.89 Other specified places as the place of occurrence of the external cause; F17.200 Nicotine dependence, unspecified, uncomplicated; Z88.0 Allergy status to penicillin
CPT/HCPCS: J1100

== ENCOUNTER 2018-02-11 17:36 | Emergency (ER) | payer OTHER ==
[~2018-02-11] VITALS: Ht 165.1 cm; Wt 59.1 kg
[~2018-02-11 17:36] MED LIST changes: +MEDR150I10 IM; +MEDR150I12; -MEDR15VL IM; +OMEP20CA3 PO
--- NOTE | 2018-02-11 18:35 | REP ---
Clinical: Trauma. Technique: AP, lateral, bilateral oblique views of the right hand. Findings: There is a fracture of the fifth metacarpal bone with volar angulation and overlying soft tissue swelling. No subcutaneous emphysema or radiodense foreign body. Remainder examination appears normal. Impression: Angulated fracture of the fifth metacarpal bone. Electronically Signed by George Pacheco MD 02/11/2018 06:26 P
[2018-02-11] MEDS ORDERED: NORCO 5/325MG TABLET (BULK FOR ED) PO ONE (19:00)
[2018-02-11 19:42] VITALS: BP 134/75
== END 2018-02-11 19:45 | disposition home or self-care (01) ==
LOC: M ED 17:36
DX: S62.346A Nondisplaced fracture of base of fifth metacarpal bone, right hand, initial encounter for closed fracture (principal); W22.09XA Striking against other stationary object, initial encounter; Y92.098 Other place in other non-institutional residence as the place of occurrence of the external cause; F17.200 Nicotine dependence, unspecified, uncomplicated; Z88.0 Allergy status to penicillin

== ENCOUNTER → 2018-04-17 | Outpatient (RCR) | payer OTHER | LOC: M OT 04-01 10:03 | PROVIDERS: ATTEND Physician Assistant Medical | DX: S62.609D Fracture of unspecified phalanx of unspecified finger, subsequent encounter for fracture with routine healing (principal); W18.30XD Fall on same level, unspecified, subsequent encounter; Y92.009 Unspecified place in unspecified non-institutional (private) residence as the place of occurrence of the external cause ==

== ENCOUNTER → 2018-07-15 | Outpatient (REF) | payer OTHER ==
[~2018-07-15] MED LIST changes: -/MOM400 PO; -ACET50TA PO; -DOCU10ELUD PO; +DOCU5LIQ PO; +MAPA500T17 PO; +MILK10SU PO
== END ==
LOC: M LAB 09:22
PROVIDERS: ATTEND Physician Assistant
DX: R30.0 Dysuria (principal)

== ENCOUNTER → 2018-12-26 | Outpatient (REF) | payer OTHER ==
[~2018-12-26] MED LIST changes: -OMEP20CA3 PO; +OMEP20CA4 PO
[2018-12-26 14:28] LABS: CHLAMYDIA DNA AMPLIFICATION NEGATIVE (NEGATIVE); GC DNA AMPLIFICATION NEGATIVE (NEGATIVE)
== END ==
LOC: M LAB REF 12:45
PROVIDERS: ATTEND Nurse Practitioner Family
DX: R30.0 Dysuria (principal)

== ENCOUNTER → 2019-01-13 | Outpatient (REF) | payer OTHER ==
[2019-01-13 18:20] LABS: CHLAMYDIA DNA AMPLIFICATION NEGATIVE (NEGATIVE); GC DNA AMPLIFICATION NEGATIVE (NEGATIVE)
== END ==
LOC: M LAB REF 16:05
PROVIDERS: ATTEND Nurse Practitioner Family
DX: R30.0 Dysuria (principal)

== ENCOUNTER 2019-01-26 01:25 | Emergency (ER) | payer OTHER ==
[~2019-01-26] VITALS: Ht 165.1 cm; Wt 61.4 kg
[~2019-01-26 01:25] MED LIST changes: +OMEP-172 PO; -OMEP20CA4 PO
[2019-01-26] MEDS ORDERED: NS 1,000 ML IV ONE (02:00)
[2019-01-26] MEDS ORDERED: METOCLOPRAMIDE INJ 10MG/2ML VIAL (J2765) IV ONE (02:00)
[2019-01-26 02:32] LABS: BASO % 0.5 % (0.0-1.0); EOS # 0.1 10^3/uL (0.0-0.5); HEMATOCRIT 45.3 % (36.0-47.0); HEMOGLOBIN 15.2 g/dl (12.0-15.5); LYMPH # 2.1 10^3/uL (1.5-5.0); LYMPH % 28.8 % (24.0-44.0); MEAN CORPUSCULAR HEMOGLOBIN 32.1 pg (27.0-33.0); MEAN CORPUSCULAR HGB CONC 33.6 g/dl (32.0-36.5); MEAN CORPUSCULAR VOLUME 95.6 fl (80.0-96.0); MONO # 0.8 10^3/uL (0.0-0.8); MONO % 10.9 % (0.0-5.0); NEUTROPHILS # 4.3 10^3/uL (1.5-8.5); NEUTROPHILS % 58.5 % (36.0-66.0); PLATELET COUNT, AUTOMATED 176 10^3/uL (150-450); RED BLOOD COUNT 4.74 10^6/uL (4.00-5.40); WHITE BLOOD COUNT 7.3 10^3/uL (4.0-10.0)
[2019-01-26 02:36] LABS: APPEARANCE, URINE HAZY (CLEAR); BACTERIA, URINE AUTO NEGATIVE (NEGATIVE); BILIRUBIN, URINE AUTO NEGATIVE (NEGATIVE); BLOOD, URINE BLOOD NEGATIVE (NEGATIVE); COLOR, URINE YELLOW (YELLOW); GLUCOSE, URINE (UA) AUTO NEGATIVE (NEGATIVE); KETONE, URINE AUTO NEGATIVE (NEGATIVE); LEUKOCYTE ESTERASE, URINE AUTO NEGATIVE (NEGATIVE); MUCUS, URINE MODERATE (NEGATIVE); NITRITE, URINE AUTO NEGATIVE (NEGATIVE); PROTEIN, URINE AUTO NEGATIVE (NEGATIVE); RBC, URINE AUTO 3 /HPF (0-3); SPECIFIC GRAVITY URINE AUTO 1.024 (1.002-1.035); SQUAMOUS EPITHELIAL CELL UR AU 2 /HPF (0-6); UROBILINOGEN, URINE AUTO 0.2 mg/dL (0.0-2.0); WBC, URINE AUTO 2 /HPF (0-3)
[2019-01-26 03:00] LABS: ALT/SGPT 24 U/L (12-78); BILIRUBIN,DIRECT 0.1 MG/DL (0.0-0.2); BILIRUBIN,TOTAL 0.4 MG/DL (0.2-1.0); BLOOD UREA NITROGEN 10 MG/DL (7-18); CALCIUM LEVEL 8.5 MG/DL (8.5-10.1); CARBON DIOXIDE LEVEL 25 MEQ/L (21-32); CHLORIDE LEVEL 109 MEQ/L (98-107); CREATININE FOR GFR 0.75 MG/DL (0.55-1.30); GLOMERULAR FILTRATION RATE > 60.0 (>60); GLUCOSE, FASTING 105 MG/DL (70-100); LIPASE 66 U/L (73-393); POTASSIUM SERUM 3.6 MEQ/L (3.5-5.1); SODIUM LEVEL 142 MEQ/L (136-145); TOTAL PROTEIN 7.1 GM/DL (6.4-8.2)
[2019-01-26 03:04] LABS: HCG, SERUM QUALITATIVE NEGATIVE (NEGATIVE)
[2019-01-26] MEDS ORDERED: REGL10TA6 PO (03:43)
[2019-01-26 03:44] VITALS: BP 134/78
[2019-01-26] MEDS ORDERED: KETOROLAC 30 MG/ML VIAL (J1885) IV ONE (03:45)
== END 2019-01-26 04:02 | disposition home or self-care (01) ==
LOC: M ED 01:25
DX: K52.9 Noninfective gastroenteritis and colitis, unspecified (principal); R19.7 Diarrhea, unspecified; F41.9 Anxiety disorder, unspecified; F17.218 Nicotine dependence, cigarettes, with other nicotine-induced disorders; Z88.0 Allergy status to penicillin
CPT/HCPCS: 80048; 80076; 81001; 83690; 84703; 85025; 87086; 96361; 96374; 96375; 99284; J1885; J2765

== ENCOUNTER 2019-08-10 11:13 | Emergency (ER) | payer OTHER ==
[~2019-08-10] VITALS: Ht 165.1 cm; Wt 59.2 kg
[~2019-08-10 11:13] MED LIST changes: -OMEP-172 PO; +OMEP1CAP73 PO; +REGL10TA6 PO
[2019-08-10 11:14] VITALS: BP 129/74
[2019-08-10] MEDS ORDERED: ACETAMINOPHEN 500 MG TAB PO ONE (12:15)
== END 2019-08-10 12:24 | disposition home or self-care (01) ==
LOC: M ED 11:13
DX: L55.0 Sunburn of first degree (principal); Z88.0 Allergy status to penicillin

== ENCOUNTER 2020-08-12 06:33 | Emergency (ER) | payer OTHER ==
[~2020-08-12] VITALS: Ht 165.1 cm; Wt 65.5 kg
[2020-08-12] MEDS ORDERED: NS 1,000 ML IV ONE (07:10)
[2020-08-12 08:09] LABS: BASO % 0.4 % (0.0-1.0); EOS # 0.1 10^3/uL (0.0-0.5); EOS % 1.3 % (0.0-3.0); HEMATOCRIT 40.6 % (36.0-47.0); HEMOGLOBIN 13.3 g/dl (12.0-15.5); LYMPH # 1.9 10^3/uL (1.5-5.0); LYMPH % 28.3 % (24.0-44.0); MEAN CORPUSCULAR HEMOGLOBIN 31.1 pg (27.0-33.0); MEAN CORPUSCULAR HGB CONC 32.8 g/dl (32.0-36.5); MEAN CORPUSCULAR VOLUME 95.1 fl (80.0-96.0); MONO # 0.6 10^3/uL (0.0-0.8); MONO % 9.1 % (2.0-8.0); NEUTROPHILS # 4.1 10^3/uL (1.5-8.5); NEUTROPHILS % 60.6 % (36.0-66.0); PLATELET COUNT, AUTOMATED 164 10^3/uL (150-450); RED BLOOD COUNT 4.27 10^6/uL (4.00-5.40); WHITE BLOOD COUNT 6.8 10^3/uL (4.0-10.0)
[2020-08-12 08:29] LABS: ALBUMIN 3.6 GM/DL (3.2-5.2); BILIRUBIN,DIRECT 0.1 MG/DL (0.0-0.2); BILIRUBIN,TOTAL 0.3 MG/DL (0.2-1.0); TOTAL PROTEIN 7.1 GM/DL (6.4-8.2)
[2020-08-12] MEDS: GASTROGRAFIN SOLUTION 30ML PO SCH ×2 (08:50→09:42)
[2020-08-12] MEDS ORDERED: ISOVUE-370 76% 100ML VIAL As Ordered ONE (09:28)
--- NOTE | 2020-08-12 10:40 | REP ---
INDICATION: RLQ pain, r/o appendicitis COMPARISON: 09/27/2015. TECHNIQUE: CT Scan of the abdomen and pelvis was performed with intravenous administration of 100 cc of Isovue 370, and oral contrast. FINDINGS: Lung bases: Unremarkable. Liver: Normal Gallbladder: Not distended. Spleen: Normal. Adrenals: Normal. Pancreas: Normal. Kidneys: There is 9 mm cyst in the lower pole the right kidney. Small and large bowel: Unremarkable. Free fluid: There is trace free fluid in the pelvis. Abdominal aorta: No aneurysm or dissection. Adenopathy: None. Appendix: Not inflamed. Osseous structures: Unremarkable. Pelvis: There is a cystic structure of the right ovary 2.7 cm in diameter. IMPRESSION: No evidence of appendicitis. There is a cystic structure in the right ovary 2.7 cm in diameter. There is trace free fluid in the pelvis. <Electronically signed by Timoteo Vega > 08/12/20 [id number]
[2020-08-12] MEDS ORDERED: KETOROLAC 30 MG/ML 1ML VIAL IV ONE (11:20)
--- NOTE | 2020-08-12 11:50 | REP ---
INDICATION: RLQ pain, R ovarian cyst, r/o torsion. COMPARISON: CT today. TECHNIQUE: Transabdominal and transvaginal scanning performed. FINDINGS: Uterine dimensions are 7.3 x 3.4 x 4.8 cm. Endometrial echo is 4 mm in AP dimension and centrally placed. The bladder measures 7.3 x 5.8 x 8.9cm. The right ovary has dimensions of 3.0 x 2.0 x 3.2 cm. It's Doppler flow is normal with a resistive index of 0.64. The left ovary dimensions are 1.9 x 1.8 x 1.9 cm. It's Doppler flow was normal with resistive index of 0.53. There is a simple cyst of the right ovary measuring 3 cm in diameter. No free fluid is seen in the cul-de-sac. IMPRESSION: Simple cyst right ovary 3 cm in diameter. No free fluid or torsion. <Electronically signed by Timoteo Vega > 08/12/20 [id number]
[2020-08-12] MEDS ORDERED: IBUP80TA PO (12:05)
[2020-08-12 12:10] VITALS: BP 127/72
== END 2020-08-12 11:50 | disposition home or self-care (01) ==
LOC: M ED 06:33
DX: N83.291 Other ovarian cyst, right side (principal); F17.200 Nicotine dependence, unspecified, uncomplicated; F12.10 Cannabis abuse, uncomplicated; Z88.0 Allergy status to penicillin; Z88.1 Allergy status to other antibiotic agents
CPT/HCPCS: 36415; 74177; 76830; 76856; 80047; 80076; 81001; 83690; 84702; 85025; 93976; 96361; 96374; 99284; J1885; Q9963; Q9967

== ENCOUNTER → 2020-09-29 | Outpatient (CLI) | payer OTHER ==
--- NOTE | 2020-09-29 15:11 | REP ---
INDICATION: RT OVARIAN CYST. COMPARISON: 08/12/2020 which showed a 3 cm sized simple right ovarian cyst. TECHNIQUE: Transvesical imaging only. The reason why transvaginal imaging was withheld is unknown to me. FINDINGS: The uterus measures 8.1 x 2.8 x 3.4 cm. The parenchymal echo pattern appears unchanged. This is when the transvesical portions of each exam are compared. In the endometrial echo complex measures 2.5 mm and is within normal limits transvesically. The right ovary measures 3.1 x 2.5 x 2.4 cm and is within normal limits with an RI 0.54 Left ovary measures 2.4 x 2.1 x 2.1 cm and is within normal limits with an RI 0.47. Urinary bladder measures 9 x 7 x 10 cm. IMPRESSION: Although only transvesical imaging was obtained, today examination is within normal limits. The cyst seen previously has resolved. <Electronically signed by Jair Woodard > 09/29/20 [id number]
== END ==
LOC: M RAD 13:24
PROVIDERS: ATTEND Obstetrics & Gynecology
DX: Z87.42 Personal history of other diseases of the female genital tract (principal)

== ENCOUNTER → 2020-10-19 | Outpatient (REF) | payer OTHER ==
[2020-10-19 13:16] LABS: GC DNA AMPLIFICATION NEGATIVE (NEGATIVE)
== END ==
LOC: M LAB REF 11:03
PROVIDERS: ATTEND Physician Assistant Medical
DX: N89.8 Other specified noninflammatory disorders of vagina (principal)

== ENCOUNTER → 2020-11-21 | Outpatient (REF) | payer OTHER | LOC: M SFHCWAGY 13:10 | PROVIDERS: ATTEND Obstetrics & Gynecology | DX: Z12.4 Encounter for screening for malignant neoplasm of cervix (principal) ==

== ENCOUNTER → 2021-03-03 | Outpatient (REF) | payer OTHER | LOC: M LAB REF 15:26 | PROVIDERS: ATTEND Physician Assistant | DX: J06.9 Acute upper respiratory infection, unspecified (principal) ==

== ENCOUNTER → 2021-09-18 | Outpatient (REF) | payer OTHER ==
[2021-09-18 23:03] LABS: GC DNA AMPLIFICATION NEGATIVE (NEGATIVE)
== END ==
LOC: M LAB REF 21:18
PROVIDERS: ATTEND Physician Assistant
DX: Z20.2 Contact with and (suspected) exposure to infections with a predominantly sexual mode of transmission (principal)

== ENCOUNTER 2021-10-10 10:24 | Emergency (ER) | payer OTHER ==
[~2021-10-10] VITALS: Ht 165.1 cm; Wt 61.4 kg
[2021-10-10 11:22] LABS: BASO % 0.6 % (0.0-1.0); EOS # 0.1 10^3/uL (0.0-0.5); EOS % 1.7 % (0.0-3.0); HEMATOCRIT 41.8 % (36.0-47.0); LYMPH # 1.8 10^3/uL (1.5-5.0); LYMPH % 25.9 % (24.0-44.0); MEAN CORPUSCULAR HEMOGLOBIN 32.1 pg (27.0-33.0); MEAN CORPUSCULAR HGB CONC 33.5 g/dl (32.0-36.5); MEAN CORPUSCULAR VOLUME 95.9 fl (80.0-96.0); MONO # 0.6 10^3/uL (0.0-0.8); MONO % 8.7 % (2.0-8.0); NEUTROPHILS # 4.5 10^3/uL (1.5-8.5); NEUTROPHILS % 62.8 % (36.0-66.0); PLATELET COUNT, AUTOMATED 160 10^3/uL (150-450); RED BLOOD COUNT 4.36 10^6/uL (4.00-5.40); WHITE BLOOD COUNT 7.1 10^3/uL (4.0-10.0)
[2021-10-10] MEDS ORDERED: VITMTA PO (11:34)
[2021-10-10] MEDS ORDERED: METH40VI2 IM (11:34)
[2021-10-10 11:51] LABS: AMPHETAMINES LEVEL URINE NEGATIVE (NEGATIVE); BARBITURATES URINE NEGATIVE (NEGATIVE); BENZODIAZEPINES URINE NEGATIVE (NEGATIVE); CANNABINOIDS URINE POSITIVE (NEGATIVE); COCAINE METABOLITE URINE NEGATIVE (NEGATIVE); METHADONE URINE NEGATIVE (NEGATIVE); OPIATES URINE NEGATIVE (NEGATIVE); PHENCYCLIDINE URINE NEGATIVE (NEGATIVE)
[2021-10-10 11:54] LABS: CK-MB VALUE MASS < 1.0 NG/ML (<3.6); CPK CREATINE PHOSPHOKINASE 84 U/L (26-192); MB/CK RELATIVE INDEX 1.19 (< OR =4)
[2021-10-10 11:54] LABS: RSV AMPLIFICATION NEGATIVE (NEGATIVE)
[2021-10-10 11:56] LABS: BLOOD UREA NITROGEN 11 MG/DL (7-18); CALCIUM LEVEL 8.8 MG/DL (8.5-10.1); CARBON DIOXIDE LEVEL 27 MEQ/L (21-32); CHLORIDE LEVEL 111 MEQ/L (98-107); ETHYL ALCOHOL (ETHANOL) < 0.003 % (0.000-0.010); FREE T4 0.91 NG/DL (0.76-1.46); GLOMERULAR FILTRATION RATE > 60.0 (>60); GLUCOSE, FASTING 100 MG/DL (70-100); MAGNESIUM LEVEL 2.2 MG/DL (1.8-2.4); POTASSIUM SERUM 3.7 MEQ/L (3.5-5.1); SODIUM LEVEL 139 MEQ/L (136-145)
[2021-10-10 14:45] VITALS: BP 102/59
== END 2021-10-10 14:43 | disposition home or self-care (01) ==
LOC: EDBD 10:24 → M ED 10:24
DX: R55 Syncope and collapse (principal); I49.3 Ventricular premature depolarization; F10.10 Alcohol abuse, uncomplicated; F12.10 Cannabis abuse, uncomplicated; F17.200 Nicotine dependence, unspecified, uncomplicated; Z87.442 Personal history of urinary calculi; Z87.42 Personal history of other diseases of the female genital tract; Z88.0 Allergy status to penicillin; Z88.1 Allergy status to other antibiotic agents; Z79.899 Other long term (current) drug therapy

== ENCOUNTER 2022-04-24 10:54 | Emergency (ER) | payer OTHER ==
[~2022-04-24] VITALS: Ht 167.6 cm; Wt 68.6 kg
[~2022-04-24 10:54] MED LIST changes: +METH40VI2 IM; +VITMTA PO
[2022-04-24 12:34] VITALS: BP 110/62
[2022-04-24 12:36] LABS: BASO % 0.4 % (0.0-1.0); EOS # 0.1 10^3/uL (0.0-0.5); EOS % 0.9 % (0.0-3.0); HEMATOCRIT 38.8 % (36.0-47.0); HEMOGLOBIN 13.1 g/dl (12.0-15.5); LYMPH % 13.2 % (24.0-44.0); MEAN CORPUSCULAR HEMOGLOBIN 31.4 pg (27.0-33.0); MEAN CORPUSCULAR HGB CONC 33.8 g/dl (32.0-36.5); MONO # 0.9 10^3/uL (0.0-0.8); MONO % 11.3 % (2.0-8.0); NEUTROPHILS # 5.7 10^3/uL (1.5-8.5); NEUTROPHILS % 72.8 % (36.0-66.0); PLATELET COUNT, AUTOMATED 170 10^3/uL (150-450); RED BLOOD COUNT 4.17 10^6/uL (4.00-5.40); WHITE BLOOD COUNT 7.9 10^3/uL (4.0-10.0)
[2022-04-24 13:01] LABS: BLOOD UREA NITROGEN 14 MG/DL (9-23); CALCIUM LEVEL 8.4 MG/DL (8.5-10.1); CARBON DIOXIDE LEVEL 25 MMOL/L (20-31); CHLORIDE LEVEL 106 MMOL/L (98-107); CREATININE FOR GFR 0.74 MG/DL (0.55-1.30); GLOMERULAR FILTRATION RATE > 60.0 (>60); GLUCOSE, FASTING 91 MG/DL (60-100); POTASSIUM SERUM 3.9 MMOL/L (3.5-5.1); SODIUM LEVEL 139 MMOL/L (136-145)
[2022-04-24 13:03] LABS: FREE T4 0.97 NG/DL (0.89-1.76); THYROID STIMULATING HORMONE 1.096 uIU/ML (0.55-4.78)
== END 2022-04-24 13:45 | disposition home or self-care (01) ==
LOC: M ED 10:54 → EDBD 10:54 → M ED 13:45
DX: R55 Syncope and collapse (principal); I45.10 Unspecified right bundle-branch block; F17.200 Nicotine dependence, unspecified, uncomplicated; F12.10 Cannabis abuse, uncomplicated; Z87.442 Personal history of urinary calculi; Z88.0 Allergy status to penicillin; Z88.1 Allergy status to other antibiotic agents; Z79.810 Long term (current) use of selective estrogen receptor modulators (SERMs); Z79.899 Other long term (current) drug therapy

== ENCOUNTER → 2022-06-01 | Outpatient (REF) | payer OTHER | LOC: M SFHCWAGY 13:15 | PROVIDERS: ATTEND Obstetrics & Gynecology | DX: Z12.4 Encounter for screening for malignant neoplasm of cervix (principal); R87.610 Atypical squamous cells of undetermined significance on cytologic smear of cervix (ASC-US) ==

== ENCOUNTER → 2022-09-04 | Outpatient (REF) | payer OTHER, MEDICAID, BC | LOC: M SFHCWAGY 11:23 | PROVIDERS: ATTEND Obstetrics & Gynecology | DX: R87.610 Atypical squamous cells of undetermined significance on cytologic smear of cervix (ASC-US) (principal) ==

== ENCOUNTER → 2022-10-29 | Outpatient (REF) | payer BC ==
[~2022-10-29] MED LIST changes: -MEDR150I10 IM; +MEDR150I13 IM
[2022-10-30 00:30] LABS: GC DNA AMPLIFICATION NEGATIVE (NEGATIVE)
== END ==
LOC: M LAB REF 21:51
PROVIDERS: ATTEND Physician Assistant
DX: N76.0 Acute vaginitis (principal)

== ENCOUNTER → 2023-01-07 | Outpatient (REF) | payer BC, MEDICAID, OTHER ==
[2023-01-07 13:56] LABS: APPEARANCE, URINE HAZY (CLEAR); BACTERIA, URINE AUTO NEGATIVE (NEGATIVE); BILIRUBIN, URINE AUTO NEGATIVE (NEGATIVE); BLOOD, URINE BLOOD NEGATIVE (NEGATIVE); COLOR, URINE YELLOW (YELLOW); GLUCOSE, URINE (UA) AUTO NEGATIVE (NEGATIVE); KETONE, URINE AUTO NEGATIVE (NEGATIVE); LEUKOCYTE ESTERASE, URINE AUTO NEGATIVE (NEGATIVE); MUCUS, URINE SMALL (NEGATIVE); NITRITE, URINE AUTO NEGATIVE (NEGATIVE); PROTEIN, URINE AUTO NEGATIVE (NEGATIVE); RBC, URINE AUTO 0 /HPF (0-3); SPECIFIC GRAVITY URINE AUTO 1.019 (1.002-1.035); SQUAMOUS EPITHELIAL CELL UR AU 3 /HPF (0-6); UROBILINOGEN, URINE AUTO 0.2 mg/dL (0.0-2.0); WBC, URINE AUTO 0 /HPF (0-3)
[2023-01-07 15:57] LABS: CHLAMYDIA DNA AMPLIFICATION NEGATIVE (NEGATIVE); GC DNA AMPLIFICATION NEGATIVE (NEGATIVE)
== END ==
LOC: M LAB REF 13:13
PROVIDERS: ATTEND Physician Assistant Medical
DX: N39.0 Urinary tract infection, site not specified (principal)

== ENCOUNTER 2023-05-20 15:40 | Emergency (ER) | payer BC, MEDICAID ==
[~2023-05-20] VITALS: Ht 165.1 cm; Wt 66.0 kg
[2023-05-20] MEDS: KETOROLAC 30 MG/ML 1ML VIAL IV ONE (19:54)
[2023-05-20] MEDS ORDERED: ISOVUE-370 76% 100ML VIAL As Ordered ONE (20:10)
[2023-05-20 20:15] LABS: BASO # 0.1 10^3/uL (0.0-0.2); BASO % 0.7 % (0.0-1.0); EOS # 0.1 10^3/uL (0.0-0.5); EOS % 1.7 % (0.0-3.0); HEMATOCRIT 42.1 % (36.0-47.0); HEMOGLOBIN 14.1 g/dl (12.0-15.5); LYMPH # 2.9 10^3/uL (1.5-5.0); LYMPH % 39.4 % (24.0-44.0); MEAN CORPUSCULAR HEMOGLOBIN 32.2 pg (27.0-33.0); MEAN CORPUSCULAR HGB CONC 33.5 g/dl (32.0-36.5); MEAN CORPUSCULAR VOLUME 96.1 fl (80.0-96.0); MONO # 0.7 10^3/uL (0.0-0.8); MONO % 9.1 % (2.0-8.0); NEUTROPHILS # 3.6 10^3/uL (1.5-8.5); NEUTROPHILS % 48.8 % (36.0-66.0); PLATELET COUNT, AUTOMATED 187 10^3/uL (150-450); RED BLOOD COUNT 4.38 10^6/uL (4.00-5.40); WHITE BLOOD COUNT 7.5 10^3/uL (4.0-10.0)
[2023-05-20 20:32] LABS: ALBUMIN 4.3 G/DL (3.2-5.2); BILIRUBIN,DIRECT 0.2 MG/DL (<0.4); BILIRUBIN,TOTAL 0.5 MG/DL (0.3-1.2)
[2023-05-20] MEDS: MAGNESIUM CITRATE 300ML BTL PO ONE (21:59)
[2023-05-20 22:01] VITALS: BP 112/66; TEMP 98.4; O2SAT 99
== END 2023-05-20 22:02 | disposition home or self-care (01) ==
LOC: M ED 15:40
DX: K59.00 Constipation, unspecified (principal); F17.200 Nicotine dependence, unspecified, uncomplicated; Z87.442 Personal history of urinary calculi; Z87.42 Personal history of other diseases of the female genital tract; Z88.0 Allergy status to penicillin; Z88.1 Allergy status to other antibiotic agents; Z79.52 Long term (current) use of systemic steroids
CPT/HCPCS: 74018; 74177; 80047; 80076; 81001; 83690; 85025; 96374; 99284; J1885; Q9967

== ENCOUNTER → 2023-07-03 | Outpatient (REF) | payer MEDICAID | LOC: M SFHCWAGY 18:08 | PROVIDERS: ATTEND Obstetrics & Gynecology | DX: Z01.419 Encounter for gynecological examination (general) (routine) without abnormal findings (principal); A59.9 Trichomoniasis, unspecified; R87.610 Atypical squamous cells of undetermined significance on cytologic smear of cervix (ASC-US) ==

== ENCOUNTER → 2023-07-24 | Outpatient (REF) | payer OTHER, MEDICAID | LOC: M SFHCWAGY 10:48 | PROVIDERS: ATTEND Obstetrics & Gynecology | DX: R87.610 Atypical squamous cells of undetermined significance on cytologic smear of cervix (ASC-US) (principal) ==

== ENCOUNTER → 2024-01-21 | Outpatient (CLI) | payer OTHER, MEDICAID | LOC: M WUC 08:58 | PROVIDERS: ATTEND Nurse Practitioner Family | DX: R07.82 Intercostal pain (principal) ==

== ENCOUNTER → 2024-04-21 | Outpatient (REF) | payer OTHER ==
[2024-04-21 14:25] LABS: Trichomonas vaginalis (AMP) NOT DETECTED (NEGATIVE)
[2024-04-21 14:49] LABS: GC DNA AMPLIFICATION NEGATIVE (NEGATIVE)
== END ==
LOC: M LAB REF 12:18
PROVIDERS: ATTEND Nurse Practitioner Family
DX: R30.0 Dysuria (principal); Z11.3 Encounter for screening for infections with a predominantly sexual mode of transmission; N89.8 Other specified noninflammatory disorders of vagina

== ENCOUNTER → 2024-04-22 | Outpatient (REF) | payer OTHER ==
[2024-04-22 18:30] LABS: THYROID STIMULATING HORMONE 1.256 uIU/ML (0.55-4.78)
[2024-04-22 18:31] LABS: FREE T4 1.5 NG/DL (0.89-1.76)
[2024-04-22 19:13] LABS: BASO # 0.1 10^3/uL (0.0-0.2); BASO % 0.7 % (0.0-1.0); EOS # 0.1 10^3/uL (0.0-0.5); EOS % 0.9 % (0.0-3.0); HEMATOCRIT 45.2 % (36.0-47.0); HEMOGLOBIN 15.2 g/dl (12.0-15.5); LYMPH % 27.5 % (24.0-44.0); MEAN CORPUSCULAR HEMOGLOBIN 31.9 pg (27.0-33.0); MEAN CORPUSCULAR HGB CONC 33.6 g/dl (32.0-36.5); MEAN CORPUSCULAR VOLUME 94.8 fl (80.0-96.0); MONO # 0.9 10^3/uL (0.0-0.8); MONO % 11.8 % (2.0-8.0); NEUTROPHILS # 4.4 10^3/uL (1.5-8.5); PLATELET COUNT, AUTOMATED 259 10^3/uL (150-450); RED BLOOD COUNT 4.77 10^6/uL (4.00-5.40); WHITE BLOOD COUNT 7.4 10^3/uL (4.0-10.0)
== END ==
LOC: M LABWUC 17:31
PROVIDERS: ATTEND Physician Assistant
DX: F41.8 Other specified anxiety disorders (principal); F32.A Depression, unspecified; R22.9 Localized swelling, mass and lump, unspecified

== ENCOUNTER → 2024-08-24 | Outpatient (CLI) | payer OTHER ==
[~2024-08-24] MED LIST changes: -MEDR150I12; +MEDR150I15
== END ==
LOC: M RAD 16:08
PROVIDERS: ATTEND Student in an Organized Health Care Education/Training Program
DX: M54.50 Low back pain, unspecified (principal)

== ENCOUNTER 2024-11-22 17:47 | Emergency (ER) | payer OTHER, MEDICAID ==
[~2024-11-22] VITALS: Ht 167.6 cm; Wt 76.3 kg
[2024-11-22] MEDS ORDERED: HYDR-3363 (18:10)
[2024-11-22] MEDS ORDERED: ZOLO100T (18:10)
[2024-11-22 18:50] LABS: BASO # 0.1 10^3/uL (0.0-0.2); BASO % 0.7 % (0.0-1.0); EOS # 0.2 10^3/uL (0.0-0.5); EOS % 2.8 % (0.0-3.0); LYMPH # 2.5 10^3/uL (1.5-5.0); LYMPH % 36.8 % (24.0-44.0); MONO # 0.8 10^3/uL (0.0-0.8); MONO % 11.4 % (2.0-8.0); NEUTROPHILS # 3.3 10^3/uL (1.5-8.5); NEUTROPHILS % 48.0 % (36.0-66.0); PLATELET COUNT, AUTOMATED 227 10^3/uL (150-450)
[2024-11-22 19:06] LABS: INR 0.95
[2024-11-22 19:18] LABS: ALT/SGPT 18 U/L (7.0-40); AST/SGOT 15 U/L (<34); CALCIUM LEVEL 9.3 MG/DL (8.5-10.1); CARBON DIOXIDE LEVEL 26 MMOL/L (20-31); CHLORIDE LEVEL 106 MMOL/L (98-107); CREATININE FOR GFR 0.82 MG/DL (0.55-1.30); GLOMERULAR FILTRATION RATE > 90.0 (>60); POTASSIUM SERUM 4.1 MMOL/L (3.5-5.1); SODIUM LEVEL 141 MMOL/L (136-145)
[2024-11-22 20:45] LABS: KETONE, URINE AUTO RFX NEGATIVE (NEGATIVE); LEUKOCYTE ESTERASE UR AUTO RFX NEGATIVE (NEGATIVE); MUCUS, URINE RFX SMALL (NEGATIVE); NITRITE, URINE AUTO RFX NEGATIVE (NEGATIVE); RBC, URINE AUTO RFX 0 /HPF (0-3); SQUAM EPITHELIAL CELL UR AURFX 1 /HPF (0-6); WBC, URINE AUTO RFX 0 /HPF (0-3)
[2024-11-22 22:01] LABS: HCG, SERUM QUANTITATIVE < 2.6 MIU/ML (<4.2)
[2024-11-22] MEDS ORDERED: ISOVUE-370 76% 100 ML VIAL As Ordered ONE (22:09)
[2024-11-22] MEDS ORDERED: ANUS2.5C2 TOP (23:08)
[2024-11-22 23:32] VITALS: BP 127/77; TEMP 98.3; O2SAT 98
== END 2024-11-22 23:34 | disposition home or self-care (01) ==
LOC: M ED 17:47
DX: R10.84 Generalized abdominal pain (principal); K64.0 First degree hemorrhoids; R19.7 Diarrhea, unspecified; Z88.0 Allergy status to penicillin; Z88.1 Allergy status to other antibiotic agents; Z79.899 Other long term (current) drug therapy
CPT/HCPCS: 36415; 74177; 80048; 80076; 81001; 83690; 84702; 85025; 85610; 85730; 99284; Q9967

== ENCOUNTER 2025-02-08 09:55 | Day surgery (SDC) | payer OTHER ==
[~2025-02-08] VITALS: Ht 167.6 cm; Wt 77.6 kg
[~2025-02-08 09:55] MED LIST changes: +ANUS2.5C2 TOP; +CALC500C16 PO; +CETI10CA13 PO; +FIBE625T PO; +HYDR-3363 PO; +IRON65TA2 PO; +MULT1TAB16 PO; +SERT50TA29 PO; +ZOLO100T
[2025-02-08] MEDS ORDERED: MIDAZOLAM INJ 2 MG/2 ML VIAL As Ordered ONE (11:33)
[2025-02-08] MEDS ORDERED: GLYCOPYRROLATE INJ 0.2 MG/ML 2 ML VIAL As Ordered ONE (11:33)
[2025-02-08 11:54] VITALS: TEMP 97.6
[2025-02-08 12:15] VITALS: BP 114/78; O2SAT 100
== END 2025-02-08 12:29 | disposition home or self-care (01) ==
LOC: M OPP 09:55
PROVIDERS: ATTEND Surgery
DX: K64.0 First degree hemorrhoids (principal); K92.1 Melena; K29.70 Gastritis, unspecified, without bleeding; K29.80 Duodenitis without bleeding; Z88.0 Allergy status to penicillin; Z88.1 Allergy status to other antibiotic agents
CPT/HCPCS: 43239; 45378; 88305; J1596; J2250